=== PATIENT | female | born 2000 | race Caucasian/White ===

== ENCOUNTER 2023-12-06 18:47 | Emergency (ER) | payer OTHER, SELFPAY ==
[2023-12-06 18:51] VITALS: BP 127/88
[2023-12-06 19:17] LABS: % Basophils 0.7 % (0-2); % Eosinophils 3.5 % (0-6); % Immature Granulocytes 0.5 % (0-0.5); % Lymphocytes 29.4 % (20.5-51.1); % Monocytes 6.7 % (1.7-9.3); % Neutrophils 59.2 % (42.2-75.2); Absolute Basophils 0.1 10^3/uL (0-0.2); Absolute Eosinophils 0.5 10^3/uL (0-0.7); Absolute Immature Granulocytes 0.1 10^3/uL (0-0.05); Absolute Lymphocytes 4.5 10^3/uL (1.2-3.4); Hematocrit 48.2 % (37.0-47.0); Hemoglobin 15.6 g/dL (12.0-16.0); Mean Corp Hgb Conc. 32.4 g/dL (33.0-37.0); Mean Corpuscular Hgb 28.5 pg (27.0-31.0); Mean Corpuscular Volume 88.1 fL (81.0-99.0); Nucleated Red Blood Cells % 0 %; Platelet Count 447 10^3/uL (130-400); Red Blood Cell Count 5.47 10^6/uL (4.20-5.40); Red Cell Dist. Width 13.9 % (11.5-14.5); White Blood Cell Count 15.2 10^3/uL (4.8-10.8)
[2023-12-06 19:19] LABS: Urine Albumin Negative (Neg - Trace); Urine Bilirubin Negative (Negative); Urine Character Clear (Clear); Urine Color Yellow; Urine Glucose Negative (Negative); Urine Ketone Negative (Negative); Urine Leukocyte Trace (Negative); Urine Nitrite Negative (Negative); Urine Occult Blood 2+ (Negative); Urine Urobilinogen Negative (Neg - 1+)
[2023-12-06 19:25] VITALS: BP 125/108
[2023-12-06 19:27] LABS: Urine White Cell None Seen /HPF (0-5)
[2023-12-06 19:32] LABS: HCG, Serum Qualitative Screen Negative
[2023-12-06 19:36] LABS: ALT (SGPT) 34 U/L (0-35); AST (SGOT) 34 U/L (14-36); Albumin 4.3 g/dl (3.5-5.0); Alkaline Phosphatase 61 U/L (38-126); Blood Urea Nitrogen 10 mg/dl (7-17); Calcium 9.7 mg/dl (8.4-10.2); Carbon Dioxide 26 mmol/L (22-30); Chloride 106 mmol/L (98-107); Glucose 94 mg/dl (70-99); Lipase 267 U/L (23-300); Potassium 4.1 mmol/L (3.5-5.1); Sodium 137 mmol/L (135-145); Total Bilirubin 0.4 mg/dl (0.2-1.3); Total Protein 7.4 g/dl (6.3-8.2); eGFR > 60.00
--- NOTE | 2023-12-06 19:51 | ED.GENMED ---
History of Present Illness
General
Chief Complaint: Abdominal Pain
Source: patient
Exam Limitations: none
Time Seen by Provider: 12/06/23 19:28
Travel History
Have you had any contact with someone who has COVID-19?: No
Do you have any symptoms of coronavirus? Fever > 100 degrees, chills, cough, shortness of breath, sore throat, loss of taste or smell, muscle aches, or headache?: No
History of Present Illness
History of Present Illness:
This is a 23 year old female that comes in with c/o severe pelvic pain. States that this started about 5 hours ago and she is nauseated. States that this is worse then period cramps. States that she is due to see her PCP on the for a Pap smear.
States that right now she she has no [employer] as she moved from [place]. States that she feels slightly SOB with the pain, has vomited once, has diarrhea, slight headache and feels like she is spinning. States that she tried smoking marijuana to help with
the pain but this did not help. Denies any fever, chills, chest pain, urinary burning.
Past History
Past History
ED Past Medical History: Asthma (smoker), Cancer (Cervical CA), GERD (hiatal hernia, IBS), Seizures, Psychiatric (ADHD, depression, suicide attempt, Anxiety, Schizo, PTSD) and Other (Lower body nerve damage, Hiatal hernia, IBS, Endometriosi, Ovarian
cyst, PCOS, Pelvic floor dysfunction, Eczema,)
ED Past Surgical History: None, Cholecystectomy and Gynecological (LEEP, )
Social History
Tobacco: Smoker
Alcohol: None
Drug: Marijuana
Personal: Single (Has a Partner same sex)
Living: with family
Review of Systems
Review of Systems
All Other Systems: ROS reviewed and negative except as documented in HPI and ROS
Constitutional: Reports no symptoms; Denies fever or chills
EENT: Reports no symptoms
Respiratory: Reports trouble breathing (Slight with pain); Denies cough
Cardiac: Denies chest pain
ABD/GI: Reports abdominal pain, nausea, vomiting and diarrhea
: Reports no symptoms; Denies dysuria, frequency or urgency
Musculoskeletal: Reports no symptoms
Skin: Reports no symptoms
Neurological: Reports dizzy (Slight) and headache
Psychiatric: Reports no symptoms
Phy Exam
General Physical Exam
General Presentation: no apparent distress
General age: appears stated age
General Skin: warm and dry
General Habitus: normal
General Mental: alert
General Hydration: appears well hydrated
ENT Exam
ENT Exam: TM's normal, pharynx normal and neck supple
Eye Exam
Eye Exam: EOMI
Cardiovascular Exam
Cardiovascular Exam: regular rate/rhythm, no edema, no murmur and normal peripheral pulses
Pulmonary Exam
Pulmonary Exam: lungs clear, no respiratory distress, no rales, chest non tender, no crackles, no rhonchi, no wheezing and no cough
Gastrointestinal Exam
Gastrointestinal Exam: normal bowel sounds, soft, no organomegaly, no pulsatile mass, non distended, tender (Lower abd tenderness with palpation) and other (Obese)
Musculoskeletal Exam
Musculoskeletal Exam: full ROM and no edema
Skin Exam
Skin Exam: normal color, warm/dry, no rash and no petechia
Psychiatric Exam
Psychiatric Exam: normal mood/affect
Course
Orders/Labs/Results
Orders:
Orders
12/06/23 18:55
IV Insert/Care/Rem.- Treatment PRN
Test Result ONCE
12/06/23 19:05
Complete Blood Count/With Diff Urgent
Comprehensive Metabolic Panel Urgent
HCG, Serum Qualitative Screen Urgent
Lipase Urgent
Urinalysis Reflex To Culture Urgent
Date Specimen was Collected: 12/06/23
Time Specimen was Collected: 18:55
Urine Microscopic Reflex Cult Urgent
12/06/23 19:49
0.9% Sodium Chloride 1000 ml [Nss] 1,000 ml IV BOLUS
Ketorolac [Toradol] 30 mg IV NOW STA
Ondansetron Injectable [Zofran] 4 mg IV NOW STA
12/06/23 19:50
CT Abd/pelvis W Iv Cont Urgent
Comment:
Reason For Exam: Lower abd pain
Acetaminophen [Tylenol] 1,000 mg PO NOW STA
Abnormal Lab Results
12/06/23
19:05
WBC 15.2 H 10^3/uL
(4.8-10.8)
RBC 5.47 H 10^6/uL
(4.20-5.40)
Hct 48.2 H %
(37.0-47.0)
MCHC 32.4 L g/dL
(33.0-37.0)
Plt Count 447 H 10^3/uL
(130-400)
Abs Immat Gran (auto) 0.1 H 10^3/uL
(0-0.05)
Absolute Neuts (auto) 9.0 H 10^3/uL
(1.4-6.5)
Absolute Lymphs (auto) 4.5 H 10^3/uL
(1.2-3.4)
Absolute Monos (auto) 1.0 H 10^3/uL
(0.1-0.6)
Ur Occult Blood Reflex 2+ A
(Negative)
Leukocyte Esterase Rfl Trace A
(Negative)
Urine RBC 7-10 A /HPF
(0-2)
12/06/23 19:05
12/06/23 19:05
Leukocytosis, Plt slightly elevated. Urine negative for infection. HCG negative
Vital Signs
Initial and Last Documented VS:
Initial Vital Signs
Temp Pulse Resp BP Pulse Ox
98.2 F 113 17 127/88 97
12/06/23 18:51 12/06/23 18:51 12/06/23 18:51 12/06/23 18:51 12/06/23 18:51
Last Documented Vital Signs
Temp Pulse Resp BP Pulse Ox
98.2 F 88 20 99/63 94
12/06/23 18:51 12/06/23 22:45 12/06/23 22:45 12/06/23 22:00 12/06/23 22:45
MDM/Problems Addressed
Differential Diagnosis Includes:
Endometriosis, diverticulitis. Colitis,
MDM/Problems Addressed:
This is a 23 year old female that comes in with c/o lower abd pain. States that this started 5 hours ago and that her pain is worse the period cramps. State that she has seen pain managment and that sometimes she just needs something stronger the
what she can get over the counter.
Will check abd, CT abd/pelvis and medicate for pain.
Back into see patient. Patient states that the pain medication that she was given did not help at all. States that her pain is still an 8/10. Explained that her CT scan is normal. This may be due to her Endometriosis and patient will need to follow
up with the heel curver and pain management. Will give patient an IV dose of Dilaudid and Zofran know and discharge home.
Chronic conditions affecting care: Other (Endometriosis, PCOS, )
Acute Exacerbation and/or Progression of Chronic Illness:
Endometriosis, PCOS
*Radiology
Radiology exam reviewed: radiology read reviewed (CT-There is no evidence of acute pathology in the abdomen or pelvis. There is cholecystectomy. There is an IUD in the anteverted uterus. )
*Pulse Oximetry
Patient hypoxic: no
*EKG
Interpreted by ED Provider?: NA
Rate: EKG- N/A
*Glass Crusher Interpretation
Rate: Glass Crusher- N/A
*Critical Care Note
Total Time (30-74mins, 75-104mins- exclusive of procedures): Not Applicable
ED Attending Note
-
Portions of this chart may have been created with voice recognition software.� Occasional wrong word or��sound alike� substitutions may have occurred due to the inherent limitations of voice recognition software.
Discharge Plan
Departure
Patient Disposition: Home (Routine Discharge)
Date of Disposition: 12/06/23
Time of Disposition: 23:07
Patient with high blood pressure during this ER visit?: No
Condition: Good
Covid-19: Not Applicable
Discharge Problem:
Abdominal pain
Instructions: Abdominal Pain
Prescriptions:
No Action
albuterol sulfate 1 PUFF HFA aerosol inhaler
2 puff inhalation R Q4HPRN PRN (Reason: asthma)
Amitriptyline
20 mg PO .WITHDINNER
omeprazole [Prilosec] 40 MG capsule,delayed release(DR/EC)
40 mg PO .WITHDINNER
cholecalciferol (vitamin D3) [Vitamin D3] 1,000 UNIT capsule
2,000 unit PO DAILY
Prozac:
20 mg PO DAILY
cetirizine 10 MG tablet
10 mg PO DAILY
prazosin 1 MG capsule
3 mg PO BID
famotidine 40 MG tablet
40 mg PO .AM
ondansetron 4 MG tablet,disintegrating
4 mg PO TIDPRN PRN (Reason: nausea) Qty: 12 0RF
azithromycin 250 MG tablet
250 mg PO DAILY Qty: 6 0RF
Rx Instructions:
Take 500 mg day 1, take 250 mg day 2-5
venlafaxine 150 mg tablet extended release 24hr
150 mg PO DAILY Qty: 30 0RF
hydroxyzine HCl 25 mg tablet
25 mg PO BID PRN (Reason: itching) Qty: 30 0RF
omeprazole 40 mg capsule,delayed release(DR/EC)
40 mg PO BID Qty: 60 0RF
hyoscyamine sulfate 0.125 mg tablet,disintegrating
0.125 mg PO QID PRN (Reason: dyspepsia) Qty: 120 0RF
famotidine 20 mg tablet
20 mg PO BID Qty: 30 0RF
Referrals:
Nanette Tinoco MD, Resident [Family Provider] - Call in 1-3 days for appt
Activity Restrictions/Additional Instructions:
As discussed, your blood work shows that your WBC are elevated. However, your CT of the abd is normal. Your urine is negative for infection. This may all be related to your Endometriosis. Please follow up with the C[employer]ER for further evaluation and
pain management to help control your pain. IF YOU HAVE ANY OTHER CONCERNS PLEASE RETURN TO THE EMERGENCY ROOM.
Interventions
Interventions:
*Risk Screen - Suicide Last Done: 12/06/23 18:51
*General Assessment Last Done: 12/06/23 18:51
*Neglect/Abuse Screening Last Done: 12/06/23 18:51
ED- Fall Risk Assessment Last Done: 12/06/23 19:29
*ED COVID-19 Vaccine History Last Done: 12/06/23 18:51
FT-Ezhydm-Hjwvoikhmp Assessment Last Done: 12/06/23 19:29
Discharge Date and Time
Print Language: URDU
[2023-12-06] MEDS: ZOFRAN 4 MG IV ×2 (19:59→23:09)
[2023-12-06] MEDS: TORADOL 30 MG IV (19:59)
[2023-12-06] MEDS: TYLENOL 1000 MG PO (19:59)
[2023-12-06] MEDS: NSS 1000 IV (19:59)
[2023-12-06 20:08] VITALS: BP 102/76
[2023-12-06 21:21] VITALS: BP 103/63
[2023-12-06 22:00] VITALS: BP 99/63
[2023-12-06 23:00] VITALS: BP 101/72
[2023-12-06] MEDS: DILAUDID 0.5 MG IV (23:09)
== END 2023-12-06 23:21 | disposition home or self-care (01) ==
LOC: EMR 18:47
PROVIDERS: EMERGENCY PHYSICIAN Emergency Medicine; FAMILY PHYSICIAN Student in an Organized Health Care Education/Training Program
DX: R10.9 Unspecified abdominal pain (principal); R11.2 Nausea with vomiting, unspecified; R19.7 Diarrhea, unspecified; R06.02 Shortness of breath; R42 Dizziness and giddiness; R10.30 Lower abdominal pain, unspecified; E28.2 Polycystic ovarian syndrome
CPT/HCPCS: 99285; 96374; 96375 ×2; 96361; 96376; 74177; 80053; 81003; 81015; 83690; 84703; 85025; Q9967

== ENCOUNTER 2023-12-17 01:24 | Emergency (ER) | payer OTHER, SELFPAY ==
[2023-12-17 01:26] VITALS: BP 123/86
--- NOTE | 2023-12-17 01:44 | ED.GENMED ---
History of Present Illness
<GOYO Tucker - Last Filed: 12/17/23 01:53>
General
Chief Complaint: Dental Problem
Source: patient
Exam Limitations: none
Time Seen by Provider: 12/17/23 01:31
Nursing documentation reviewed up to this point in time: agreed with
Travel History
Have you had any contact with someone who has COVID-19?: No
Do you have any symptoms of coronavirus? Fever > 100 degrees, chills, cough, shortness of breath, sore throat, loss of taste or smell, muscle aches, or headache?: No
History of Present Illness
History of Present Illness:
patient is a 23 y/o female presenting with dental pain and swelling x 12 hrs. Patient states that she noticed the pain in her left lower teeth around noon. Patient states she was taking Advil and Tylenol all day for the pain with her last dose at
midnight. Patient states that pain is sharp and aches with no radiation. Patient admits the pain is a 9/10. Patient admits to having a root canal surgery done on the same teeth involved with 1 month ago. Patient denies any complications from the
procedure. Patient stated the welling on her left lower face was mild during the day and she went to bed around 8pm and woke up to extreme swelling Patient admits to nausea with no episodes of vomiting. Patient admits to numbness at the sight of
swelling. Patient admits to mild difficulty d=swallowing and talking. Patient admits to increased salivation and drooling. Patient denies any bleeding, fever, chills, V/D/C. Patient states she does not regularly see a dentist. Patient is a current
smoker
Past History
<GOYO Tucker - Last Filed: 12/17/23 01:53>
Past History
ED Past Medical History: Asthma (smoker), Cancer (Cervical CA), GERD (hiatal hernia, IBS), Seizures, Psychiatric (ADHD, depression, suicide attempt, Anxiety, Schizo, PTSD) and Other (Lower body nerve damage, Hiatal hernia, IBS, Endometriosi, Ovarian
cyst, PCOS, Pelvic floor dysfunction, Eczema,)
ED Past Surgical History: None, Cholecystectomy and Gynecological (LEEP, )
Social History
Tobacco: Smoker
Alcohol: None
Drug: Marijuana
Personal: Single (Has a Partner same sex)
Living: with family
Review of Systems
<GOYO Tucker - Last Filed: 12/17/23 01:53>
Review of Systems
Constitutional: Reports no symptoms
EENT: Reports mouth pain (left lower), mouth swelling (left lower ) and other (dysphagia, drooling )
Respiratory: Reports no symptoms
Cardiac: Reports no symptoms
ABD/GI: Reports nausea
Phy Exam
<GOYO Tucker - Last Filed: 12/17/23 01:53>
General Physical Exam
General Presentation: well appearing and no apparent distress
General Skin: warm and dry
General Habitus: normal
General Mental: alert
General Hydration: appears well hydrated
ENT Exam
ENT Exam: other (pain to palpation over swelling)
Additional ENT: moderate swelling noted to left lower mouth/teeth, erythema noted, pain
Eye Exam
Eye Exam: PERRL, cornea clear and conjunctiva normal
Cardiovascular Exam
Cardiovascular Exam: regular rate/rhythm, no edema, no murmur and normal peripheral pulses
Pulmonary Exam
Pulmonary Exam: lungs clear, no respiratory distress, no rales, no crackles, no rhonchi, no stridor, no wheezing and no cough
Gastrointestinal Exam
Gastrointestinal Exam: normal bowel sounds, non tender, soft, no organomegaly, no pulsatile mass and non distended
Neurological Exam
Neurological Exam: alert, oriented x3, no motor deficits and speech normal
Musculoskeletal Exam
Musculoskeletal Exam: full ROM and no edema
Skin Exam
Skin Exam: normal color, warm/dry, no rash and no petechia
Psychiatric Exam
Psychiatric Exam: normal mood/affect
Course
<GOYO Tucker - Last Filed: 12/17/23 01:53>
Orders/Labs/Results
Orders:
Orders
12/17/23 02:16
Clindamycin HCl [Cleocin] 450 mg PO NOW STA
12/17/23 02:17
Bupivacaine HCl/Epinephrine [Marcaine 0.5% W/Epi Dental [place]] 1 cartridge INJ OR ONE
Vital Signs
Initial and Last Documented VS:
Initial Vital Signs
Temp Pulse Resp BP Pulse Ox
98 F 104 18 123/86 98
12/17/23 01:26 12/17/23 01:26 12/17/23 01:26 12/17/23 01:26 12/17/23 01:26
Last Documented Vital Signs
Temp Pulse Resp BP Pulse Ox
98 F 104 18 123/86 98
12/17/23 01:26 12/17/23 01:26 12/17/23 01:26 12/17/23 01:26 12/17/23 01:26
<Larry Cornell DO - Last Filed: 12/17/23 03:39>
Orders/Labs/Results
Orders:
Orders
12/17/23 02:16
Clindamycin HCl [Cleocin] 450 mg PO NOW STA
12/17/23 02:17
Bupivacaine HCl/Epinephrine [Marcaine 0.5% W/Epi Dental [place]] 1 cartridge INJ OR ONE
Vital Signs
Initial and Last Documented VS:
Initial Vital Signs
Temp Pulse Resp BP Pulse Ox
98 F 104 18 123/86 98
12/17/23 01:26 12/17/23 01:26 12/17/23 01:26 12/17/23 01:26 12/17/23 01:26
Last Documented Vital Signs
Temp Pulse Resp BP Pulse Ox
98 F 104 18 123/86 98
12/17/23 01:26 12/17/23 01:26 12/17/23 01:26 12/17/23 01:26 12/17/23 01:26
Procedures
<Larry Cornell DO - Last Filed: 12/17/23 03:39>
Dentalgia
Dental Block: Nerve Block
Bupivacaine 0.5%/Epi Dental cartridge administered?: Yes
Abcess drained?: No
Pt tolerated procedure well w/ no immediate adverse effects?: Yes
<GOYO Tucker - Last Filed: 12/17/23 01:53>
MDM/Problems Addressed
Differential Diagnosis Includes:
abscess
ludwigs angina
MDM/Problems Addressed:
mouth pain
<GOYO Tucker - Last Filed: 12/17/23 01:53>
*Critical Care Note
Total Time (30-74mins, 75-104mins- exclusive of procedures): Not Applicable
<DO Reuben Moss Last Filed: 12/17/23 03:39>
Update Note
Update Note:
Patient has an allergy to morphine. She has had Percocet in the past. She does understand that oxycodone and morphine are in the same family of medications. She still request the Percocet.
ED Attending Note
<GOYO Tucker - Last Filed: 12/17/23 01:53>
-
Portions of this chart may have been created with voice recognition software.� Occasional wrong word or��sound alike� substitutions may have occurred due to the inherent limitations of voice recognition software.
<Larry Cornell DO - Last Filed: 12/17/23 03:39>
ED Attending Note
Patient seen and examined by attending physician: Yes
I performed the substantive portion of visit, reviewed & personally made and approve the management plan that is documented in note by myself or GISEL.: Yes
ED Attending Note:
Pleasant 23-year-old female who presents with left lower dental pain. She has been having pain and swelling since noon today. She has had dental work on these teeth in the past. She also has had an abscess in the past. She has not been on
antibiotics recently. Pt is a smoker. Patient was seen in conjunction with the PA student. I have reviewed and agree with the history and treatment plan presented. On my independent physical exam, patient is awake, alert, and oriented x3.
Swelling of the left buccal mucosa. Patient has full mobility of the tongue. No trismus. Voice is normal.
Discharge Plan
Departure
Patient Disposition: Home (Routine Discharge)
Date of Disposition: 12/17/23
Time of Disposition: 03:36
Patient with high blood pressure during this ER visit?: Yes
Condition: Good
Discharge Problem:
Abscess of internal cheek, left, Pain, dental
Instructions: Tooth Abscess (DC), Dental Pain (DC)
Prescriptions:
New
diclofenac sodium 75 mg tablet,delayed release (DR/EC)
75 mg PO BID Qty: 10 0RF
clindamycin HCl 150 mg capsule
450 mg PO TID 10 Days Qty: 90 0RF
No Action
albuterol sulfate 1 PUFF HFA aerosol inhaler
2 puff inhalation R Q4HPRN PRN (Reason: asthma)
cholecalciferol (vitamin D3) [Vitamin D3] 1,000 UNIT capsule
2,000 unit PO DAILY
cetirizine 10 MG tablet
10 mg PO DAILY
venlafaxine 150 mg tablet extended release 24hr
150 mg PO DAILY Qty: 30 0RF
omeprazole 40 mg capsule,delayed release(DR/EC)
40 mg PO BID Qty: 60 0RF
hyoscyamine sulfate 0.125 mg tablet,disintegrating
0.125 mg PO QID PRN (Reason: dyspepsia) Qty: 120 0RF
famotidine 20 mg tablet
20 mg PO BID Qty: 30 0RF
lorazepam [Ativan] 0.5 mg Tablet
0.5 mg PO DAILY
aripiprazole 5 mg Tablet
7.5 mg PO DAILY
Liletta 20.4 mcg/24 hrs (8 yrs) 52 mg Intrauterine Device
1 device INTRAUTERINE ONCE
hydroxyzine HCl 25 mg tablet
25 mg PO BID PRN (Reason: nausea)
Referrals:
[facility] [Outside]
Nanette Tinoco MD, Resident [Family Provider] -
Activity Restrictions/Additional Instructions:
Reduced-Fee Dental Clinics
[facility]: [phone] call for appt. No walk ins
[facility]:
[facility]: [phone]
[facility] [phone]
[facility]: . No walk ins
[facility]: [phone]
[facility]: [phone]
[facility]: 1-
[facility]: [phone]
[facility]: [phone]
[facility] Sliding scale, Free for uninsured
[facility]: [phone]
[facility] [phone] [address]
[facility]:
[facility]:
Interventions
Interventions:
*Risk Screen - Suicide Last Done: 12/17/23 02:01
*General Assessment Last Done: 12/17/23 02:01
*Neglect/Abuse Screening Last Done: 12/17/23 02:01
*ED COVID-19 Vaccine History Last Done: 12/17/23 02:01
Discharge Date and Time
Print Language: GREENLANDIC
[2023-12-17 02:01] VITALS: BMI 44.9
--- NOTE | 2023-12-17 02:07 | EDRN ---
Pt says she had 2 root canals done 1 month ago on back L lower teeth. Pt developed pain in these teeth and took motrin and tylenol at 2000 and put ice on L side of her face. Pt went to bed and woke at midnight with excruciating pain and
significantly increased swelling on L jaw. Pt took 1000mg tylenol at midnight. Pt denies fever/chills.
[2023-12-17] MEDS: CLEOCIN 450 MG PO (02:32)
[2023-12-17 04:07] VITALS: BP 125/75
[2023-12-17] MEDS: PERCOCET 5/325 1 TABLET PO (04:07)
== END 2023-12-17 04:15 | disposition home or self-care (01) ==
LOC: EMR 01:24
PROVIDERS: EMERGENCY PHYSICIAN Student in an Organized Health Care Education/Training Program; FAMILY PHYSICIAN Student in an Organized Health Care Education/Training Program
DX: K08.89 Other specified disorders of teeth and supporting structures (principal); F17.200 Nicotine dependence, unspecified, uncomplicated; R03.0 Elevated blood-pressure reading, without diagnosis of hypertension; Z88.5 Allergy status to narcotic agent
CPT/HCPCS: 99284; 64400

== ENCOUNTER 2024-01-24 11:28 | Emergency (ER) | payer OTHER, SELFPAY ==
[2024-01-24 11:37] VITALS: BP 126/83
--- NOTE | 2024-01-24 12:27 | ED.GENMED ---
History of Present Illness
General
Chief Complaint: Abdominal Symptoms
Source: patient
Time Seen by Provider: 01/24/24 12:04
Travel History
Have you had any contact with someone who has COVID-19?: No
Do you have any symptoms of coronavirus? Fever > 100 degrees, chills, cough, shortness of breath, sore throat, loss of taste or smell, muscle aches, or headache?: No
History of Present Illness
History of Present Illness:
23-year-old female with past medical history of GERD, IBS, hiatal hernia, endometriosis presenting to the emergency department for evaluation of right upper quadrant abdominal pain x 1 day accompanied with nausea and vomiting, loose stool and
decreased p.o. intake. Patient states the pain feels similar to when she had her previous cholecystectomy done in 2020. She notes a issue of chronic GI symptoms that this also feels like. She did not take anything at home other than her
omeprazole and Pepcid as she states usual Tylenol and Motrin do not work for her. She denies any fevers, chills, rigors, urinary symptoms, chest pain or shortness of breath, or any other concerns. Patient does note that due to her insurance she
has been unable to follow-up with a GI specialist. Social history was noted for cigarette/tobacco use.
Past History
Past History
ED Past Medical History: Asthma (smoker), GERD (hiatal hernia, IBS), Seizures, Psychiatric (ADHD, depression, suicide attempt, Anxiety, Schizo, PTSD) and Other (Lower body nerve damage, Hiatal hernia, IBS, Endometriosi, Ovarian cyst, PCOS, Pelvic
floor dysfunction, Eczema,)
ED Past Surgical History: Cholecystectomy and Gynecological (LEEP, )
Social History
Tobacco: Smoker
Alcohol: None
Drug: Marijuana
Personal: Single (Has a Partner same sex)
Living: with family
Review of Systems
Review of Systems
All Other Systems: ROS reviewed and negative except as documented in HPI and ROS
Phy Exam
Physical Exam
Physical Exam:
GENERAL: Alert , in no apparent distress, overweight
EYE: clear conjunctiva b/l
HEAD: NCAT
ENT: o/p clr, mmm.
CARDIAC: Regular rate and rhythm, no murmur.
LUNGS: Clear breath sounds bilaterally, no acute respiratory distress, no wheezes/rales/rhonchi
ABDOMEN: Soft, generalized tenderness on the right side of the abdomen, no r/g, no cvat
NEUROLOGICAL: Alert and oriented
SKIN: Warm and dry, skin intact.
MUSCULOSKELETAL: No edema, well perfused.
PSYCH: Normal and appropriate interaction.
Scores
Heart Failure Risk
Heart Failure Risk Score: Not Applicable
Heart Score for Chest Pain Patients
STEMI patient?: Not applicable
Withdrawal Assessment of Alcohol
Withdrawal Assessment Completed?: Not applicable
Course
Orders/Labs/Results
Orders:
Orders
01/24/24 12:17
0.9% Sodium Chloride 1000 ml [Nss] 1,000 ml IV BOLUS
HYDROmorphone [Dilaudid] 1 mg IV NOW STA
Ondansetron Injectable [Zofran] 4 mg IV NOW STA
01/24/24 12:18
Test Result ONCE
01/24/24 13:02
Complete Blood Count/With Diff Urgent
Comprehensive Metabolic Panel Urgent
HCG, Serum Qualitative Screen Urgent
Lipase Urgent
Urinalysis Reflex To Culture Urgent
Date Specimen was Collected: 01/24/24
Time Specimen was Collected: 13:02
01/24/24 14:01
Diphenhydramine [Benadryl] 50 mg PO NOW STA
Abnormal Lab Results
01/24/24
13:02
WBC 15.7 H 10^3/uL
(4.8-10.8)
RBC 5.61 H 10^6/uL
(4.20-5.40)
Hct 48.0 H %
(37.0-47.0)
MCHC 32.9 L g/dL
(33.0-37.0)
Abs Immat Gran (auto) 0.1 H 10^3/uL
(0-0.05)
Absolute Neuts (auto) 9.7 H 10^3/uL
(1.4-6.5)
Absolute Lymphs (auto) 4.6 H 10^3/uL
(1.2-3.4)
Absolute Monos (auto) 1.0 H 10^3/uL
(0.1-0.6)
ALT 41 H U/L
(0-35)
01/24/24 13:02
01/24/24 13:02
Vital Signs
Initial and Last Documented VS:
Initial Vital Signs
Temp Pulse Resp BP Pulse Ox
98.9 F 94 18 126/83 98
01/24/24 11:37 01/24/24 11:37 01/24/24 11:37 01/24/24 11:37 01/24/24 11:37
Last Documented Vital Signs
Temp Pulse Resp BP Pulse Ox
98.9 F 94 18 126/83 98
01/24/24 11:37 01/24/24 11:37 01/24/24 11:37 01/24/24 11:37 01/24/24 11:37
MDM/Problems Addressed
Differential Diagnosis Includes:
GERD, gastritis, hiatal hernia exacerbation, retained common bile duct stone, pancreatitis, appendicitis
MDM/Problems Addressed:
23-year-old female with chronic GI related symptoms presenting to the emergency department for evaluation of what appears to be an acute on chronic exacerbation of her usual GI symptoms. Patient seen in the ER in November with similar kind of
presentation and had an unremarkable workup including a CT of the abdomen and pelvis. Based off of current presentation I am less suspicious for an acute emergent pathology and suspect this is more of a chronic exacerbation of patient's chronic
medical conditions. Patient noting most anti-inflammatories do not give her any relief, there is a noted morphine allergy which patient reports anaphylaxis to. She was given Dilaudid on her last visit to the ER here without any evidence of
allergic reactions noted. Overall I am less suspicious for any acute surgical or infectious pathology. Will have low threshold to order imaging if labs start to return abnormal.
Chronic conditions affecting care: Previous abdomnial surgery and Other (GERD/gastritis)
Acute Exacerbation and/or Progression of Chronic Illness: Previous abdomnial surgery
*Pulse Oximetry
Patient hypoxic: no
*Critical Care Note
Total Time (30-74mins, 75-104mins- exclusive of procedures): Not Applicable
Data Reviewed
Review of Other/Old Records Reveals: Labs, Records and Radiology Studies
Source: patient and records
Patient Management
Escalation/DeEscalation of care consider admission/obs:
Patient's labs reveal a leukocytosis however this appears to be a chronic finding and patient does note that she has been told about this before and has been recommended to see hematology but has yet to do so. There is no work shift. Chemistry is
at patient's baseline and urine without any signs of infection. Overall again I do suspect that this is patient's chronic conditions causing her her symptoms today. She is requesting something for pain to be discharged home with. Patient states
she has done well with Vicodin before. Will give short term course of this as well as Zofran. [place] PDMP was reviewed without any prescriptive abnormalities. Patient is stable for discharge home.
ED Attending Note
-
Portions of this chart may have been created with voice recognition software.� Occasional wrong word or��sound alike� substitutions may have occurred due to the inherent limitations of voice recognition software.
Discharge Plan
Departure
Patient Disposition: Home (Routine Discharge)
Date of Disposition: 01/24/24
Time of Disposition: 14:01
Patient with high blood pressure during this ER visit?: No
Discharge Problem:
Abdominal pain, Nausea and vomiting
Instructions: Nausea and Vomiting, Adult (DC)
Prescriptions:
New
hydrocodone-acetaminophen 5-300 mg tablet
1 tab PO BID PRN (Reason: Pain) Qty: 8 0RF
ondansetron 4 mg tablet,disintegrating
4 mg PO TIDPRN PRN (Reason: nausea/vomiting) Qty: 10 0RF
No Action
albuterol sulfate 1 PUFF HFA aerosol inhaler
2 puff inhalation R Q4HPRN PRN (Reason: asthma)
cholecalciferol (vitamin D3) [Vitamin D3] 1,000 UNIT capsule
2,000 unit PO DAILY
cetirizine 10 MG tablet
10 mg PO DAILY
venlafaxine 150 mg tablet extended release 24hr
150 mg PO DAILY Qty: 30 0RF
omeprazole 40 mg capsule,delayed release(DR/EC)
40 mg PO BID Qty: 60 0RF
hyoscyamine sulfate 0.125 mg tablet,disintegrating
0.125 mg PO QID PRN (Reason: dyspepsia) Qty: 120 0RF
famotidine 20 mg tablet
20 mg PO BID Qty: 30 0RF
lorazepam [Ativan] 0.5 mg Tablet
0.5 mg PO DAILY
aripiprazole 5 mg Tablet
7.5 mg PO DAILY
Liletta 20.4 mcg/24 hrs (8 yrs) 52 mg Intrauterine Device
1 device INTRAUTERINE ONCE
hydroxyzine HCl 25 mg tablet
25 mg PO BID PRN (Reason: nausea)
diclofenac sodium 75 mg tablet,delayed release (DR/EC)
75 mg PO BID Qty: 10 0RF
clindamycin HCl 150 mg capsule
450 mg PO TID 10 Days Qty: 90 0RF
Referrals:
Nanette Tinoco MD, Resident [Family Provider] -
Interventions
Interventions:
*Risk Screen - Suicide Last Done: 01/24/24 13:54
*General Assessment Last Done: 01/24/24 13:54
*Neglect/Abuse Screening Last Done: 01/24/24 13:54
TK-Qyvbkq-Rqqzjfcdrf Assessment Last Done: 01/24/24 13:54
Discharge Date and Time
Print Language: BANGLADESHI
[2024-01-24] MEDS: NSS 1000 IV (12:57)
[2024-01-24] MEDS: DILAUDID 1 MG IV (12:58)
[2024-01-24] MEDS: ZOFRAN 4 MG IV (12:58)
[2024-01-24 13:10] LABS: Urine Albumin Negative (Neg - Trace); Urine Bilirubin Negative (Negative); Urine Character Clear (Clear); Urine Color Yellow; Urine Glucose Negative (Negative); Urine Ketone Negative (Negative); Urine Leukocyte Negative (Negative); Urine Nitrite Negative (Negative); Urine Occult Blood Negative (Negative); Urine Urobilinogen Negative (Neg - 1+)
[2024-01-24 13:12] LABS: % Basophils 0.6 % (0-2); % Eosinophils 1.8 % (0-6); % Immature Granulocytes 0.5 % (0-0.5); % Lymphocytes 29.3 % (20.5-51.1); % Monocytes 6.2 % (1.7-9.3); % Neutrophils 61.6 % (42.2-75.2); Absolute Basophils 0.1 10^3/uL (0-0.2); Absolute Eosinophils 0.3 10^3/uL (0-0.7); Absolute Immature Granulocytes 0.1 10^3/uL (0-0.05); Absolute Lymphocytes 4.6 10^3/uL (1.2-3.4); Absolute Neutrophils 9.7 10^3/uL (1.4-6.5); Hemoglobin 15.8 g/dL (12.0-16.0); Mean Corp Hgb Conc. 32.9 g/dL (33.0-37.0); Mean Corpuscular Hgb 28.2 pg (27.0-31.0); Mean Corpuscular Volume 85.6 fL (81.0-99.0); Mean Platelet Volume 10.1 fL (7.4-10.4); Nucleated Red Blood Cells % 0 %; Platelet Count 357 10^3/uL (130-400); Red Blood Cell Count 5.61 10^6/uL (4.20-5.40); Red Cell Dist. Width 14.2 % (11.5-14.5); White Blood Cell Count 15.7 10^3/uL (4.8-10.8)
[2024-01-24 13:33] LABS: ALT (SGPT) 41 U/L (0-35); AST (SGOT) 30 U/L (14-36); Albumin 4.3 g/dl (3.5-5.0); Alkaline Phosphatase 59 U/L (38-126); Blood Urea Nitrogen 8 mg/dl (7-17); Calcium 9.8 mg/dl (8.4-10.2); Carbon Dioxide 23 mmol/L (22-30); Chloride 107 mmol/L (98-107); Glucose 81 mg/dl (70-99); HCG, Serum Qualitative Screen Negative; Lipase 203 U/L (23-300); Potassium 4.3 mmol/L (3.5-5.1); Sodium 139 mmol/L (135-145); Total Bilirubin 0.5 mg/dl (0.2-1.3); Total Protein 7.3 g/dl (6.3-8.2); eGFR > 60.00
[2024-01-24] MEDS: BENADRYL 50 MG PO (14:06)
[2024-01-24 14:51] VITALS: BP 125/80
[2024-01-24 14:53] VITALS: BP 125/80
== END 2024-01-24 14:54 | disposition home or self-care (01) ==
LOC: EMR 11:28
PROVIDERS: Physician Assistant Medical; EMERGENCY PHYSICIAN Emergency Medicine; FAMILY PHYSICIAN Student in an Organized Health Care Education/Training Program
DX: R10.11 Right upper quadrant pain (principal); R11.2 Nausea with vomiting, unspecified; K21.9 Gastro-esophageal reflux disease without esophagitis; K58.9 Irritable bowel syndrome, unspecified; J45.909 Unspecified asthma, uncomplicated; G40.909 Epilepsy, unspecified, not intractable, without status epilepticus; F32.A Depression, unspecified; F43.10 Post-traumatic stress disorder, unspecified; E28.2 Polycystic ovarian syndrome; F17.210 Nicotine dependence, cigarettes, uncomplicated; Z90.49 Acquired absence of other specified parts of digestive tract; Z91.51 Personal history of suicidal behavior
CPT/HCPCS: 99283; 96374; 96375; 96361; 80053; 81003; 83690; 84703; 85025

== ENCOUNTER → 2024-03-28 08:56 | Outpatient (REF) | payer OTHER, SELFPAY | LOC: MRI 3T 08:56 | PROVIDERS: ATTENDING PHYSICIAN Student in an Organized Health Care Education/Training Program | DX: M62.81 Muscle weakness (generalized) (principal); M79.7 Fibromyalgia | CPT/HCPCS: 70553; A9575 ==

== ENCOUNTER 2024-04-11 10:37 | Emergency (ER) | payer OTHER, SELFPAY ==
[2024-04-11 10:52] VITALS: BP 118/79
[2024-04-11 11:32] VITALS: BMI 45.3
[2024-04-11 11:33] VITALS: BP 105/53
--- NOTE | 2024-04-11 11:46 | ED.GENMED ---
History of Present Illness
General
Chief Complaint: Abdominal Pain
Source: patient
Time Seen by Provider: 04/11/24 11:28
History of Present Illness
History of Present Illness:
23yoF with a history of GERD, IBS, endometriosis, pelvic floor dysfunction, and asthma presenting with her significant other for evaluation of abdominal pain. Patient reports a sharp, stabbing pain in her right lower quadrant that woke her up from
sleep this morning around 7 AM. The pain has been coming in waves and is intermittently severe. She currently rates her pain as a 9 out of 10 in severity. She also reports nausea but denies vomiting. She noticed a small amount of hematuria this
morning. No fevers. She is primarily worried about appendicitis. Previous abdominal surgeries include a cholecystectomy and a laparoscopy.
Past History
Past History
ED Past Medical History: Asthma (smoker), GERD (hiatal hernia, IBS), Seizures, Psychiatric (ADHD, depression, suicide attempt, Anxiety, Schizo, PTSD) and Other (Lower body nerve damage, Hiatal hernia, IBS, Endometriosi, Ovarian cyst, PCOS, Pelvic
floor dysfunction, Eczema,)
ED Past Surgical History: Cholecystectomy and Gynecological (LEEP, )
Social History
Tobacco: Smoker
Alcohol: None
Drug: Marijuana
Personal: Single (Has a Partner same sex)
Living: with family
Phy Exam
General Physical Exam
General Presentation: well appearing and no apparent distress
General age: appears stated age
General Skin: warm and dry
General Habitus: normal
General Mental: alert
Cardiovascular Exam
Cardiovascular Exam: regular rate/rhythm
Pulmonary Exam
Pulmonary Exam: lungs clear, no respiratory distress, no crackles and no wheezing
Gastrointestinal Exam
Gastrointestinal Exam: soft, non distended, cva tenderness (R) and tender (+Tenderness throughout abdomen, seems to be worse in the RLQ. +R CVA tenderness. No rebound or guarding. )
Palpation: generalized: Moderate tenderness
Skin Exam
Skin Exam: normal color and warm/dry
Psychiatric Exam
Psychiatric Exam: normal mood/affect
Course
Orders/Labs/Results
Orders:
Orders
04/11/24 11:29
Complete Blood Count/With Diff Urgent
Comprehensive Metabolic Panel Urgent
Lipase Urgent
04/11/24 11:45
CT Abd/pelvis W Iv Cont Urgent
Comment:
Reason For Exam: RLQ pain
0.9% Sodium Chloride 1000 ml [Nss] 1,000 ml IV BOLUS
HYDROmorphone [Dilaudid] 1 mg IV NOW STA
Ketorolac [Toradol] 15 mg IV NOW STA
Ondansetron Injectable [Zofran] 4 mg IV NOW STA
Test Result ONCE
04/11/24 12:04
HCG, Urine Qualitative Screen Urgent
Date Specimen was Collected: 04/11/24
Time Specimen was Collected: 11:48
Urinalysis Reflex To Culture Urgent
Date Specimen was Collected: 04/11/24
Time Specimen was Collected: 11:48
Urine Microscopic Reflex Cult Urgent
04/11/24 12:59
Acetaminophen 1000MG/100Ml [Ofirmev] 1,000 mg in 100 ml IV ONCE
Acetaminophen IV Indication:: ED Narcotic History-ONCE
HYDROmorphone [Dilaudid] 1 mg IV NOW STA
Ketorolac [Toradol] 15 mg IV NOW STA
Abnormal Lab Results
04/11/24 04/11/24
11:29 12:04
WBC 12.7 H 10^3/uL
(4.8-10.8)
RDW 15.2 H %
(11.5-14.5)
MPV 10.7 H fL
(7.4-10.4)
Absolute Neuts (auto) 7.2 H 10^3/uL
(1.4-6.5)
Absolute Lymphs (auto) 4.0 H 10^3/uL
(1.2-3.4)
Absolute Monos (auto) 1.0 H 10^3/uL
(0.1-0.6)
Chloride 109 H mmol/L
(98-107)
BUN 6 L mg/dl
(7-17)
Ur Occult Blood Reflex 3+ A
(Negative)
Urine Bacteria (Reflex) Few A
(Negative)
04/11/24 11:29
04/11/24 11:29
Vital Signs
Initial and Last Documented VS:
Initial Vital Signs
Temp Pulse Resp BP Pulse Ox
98.6 F 92 18 118/79 97
04/11/24 10:52 04/11/24 10:52 04/11/24 10:52 04/11/24 10:52 04/11/24 10:52
Last Documented Vital Signs
Temp Pulse Resp BP Pulse Ox
98.6 F 74 16 108/59 98
04/11/24 10:52 04/11/24 14:51 04/11/24 14:51 04/11/24 14:49 04/11/24 14:49
MDM/Problems Addressed
Differential Diagnosis Includes:
23yoF here with RLQ abd pain that woke her up from sleep this morning. Associated with nausea and hematuria. She is afebrile and hemodynamically stable. She is well appearing in no distress. No signs of peritonitis on abdominal exam. Differential
diagnosis includes but is not limited to: kidney stone, appendicitis, pyelonephritis, ovarian cyst, nonspecific abdominal pain
Initial ED plan: Check abdominal labs, UA, HCG, and CT abdomen. IV Zofran, Toradol, Dilaudid, and fluid bolus for symptoms.
*Critical Care Note
Total Time (30-74mins, 75-104mins- exclusive of procedures): Not Applicable
Update Note
Update Note:
Labs reveal a leukocytosis with a WBC of 12.7 which is nonspecific. Remainder of labs unremarkable including normal renal function, LFTs, lipase. UA shows 3+ blood but no signs of infection. HCG negative. CT abdomen is negative for acute findings.
Specifically, a normal appendix was visualized. Unclear etiology of symptoms, ?passed stone given hematuria. Patient stable for discharge. Advised close PCP f/u and ED return precautions discussed. Patient discharged in stable condition.
ED Attending Note
-
Portions of this chart may have been created with voice recognition software.� Occasional wrong word or��sound alike� substitutions may have occurred due to the inherent limitations of voice recognition software.
Discharge Plan
Departure
Patient Disposition: Home (Routine Discharge)
Date of Disposition: 04/11/24
Time of Disposition: 14:50
Patient with high blood pressure during this ER visit?: No
Discharge Problem:
Right sided abdominal pain
Instructions: Abdominal Pain
Prescriptions:
No Action
albuterol sulfate 1 PUFF HFA aerosol inhaler
2 puff inhalation R Q4HPRN PRN (Reason: asthma)
cholecalciferol (vitamin D3) [Vitamin D3] 1,000 UNIT capsule
2,000 unit PO DAILY
cetirizine 10 MG tablet
10 mg PO DAILY
venlafaxine 150 mg tablet extended release 24hr
150 mg PO DAILY Qty: 30 0RF
omeprazole 40 mg capsule,delayed release(DR/EC)
40 mg PO BID Qty: 60 0RF
hyoscyamine sulfate 0.125 mg tablet,disintegrating
0.125 mg PO QID PRN (Reason: dyspepsia) Qty: 120 0RF
famotidine 20 mg tablet
20 mg PO BID Qty: 30 0RF
lorazepam [Ativan] 0.5 mg Tablet
0.5 mg PO DAILY
aripiprazole 5 mg Tablet
7.5 mg PO DAILY
Liletta 20.4 mcg/24 hrs (8 yrs) 52 mg Intrauterine Device
1 device INTRAUTERINE ONCE
hydroxyzine HCl 25 mg tablet
25 mg PO BID PRN (Reason: nausea)
diclofenac sodium 75 mg tablet,delayed release (DR/EC)
75 mg PO BID Qty: 10 0RF
clindamycin HCl 150 mg capsule
450 mg PO TID 10 Days Qty: 90 0RF
hydrocodone-acetaminophen 5-300 mg tablet
1 tab PO BID PRN (Reason: Pain) Qty: 8 0RF
ondansetron 4 mg tablet,disintegrating
4 mg PO TIDPRN PRN (Reason: nausea/vomiting) Qty: 10 0RF
Referrals:
Nanette Tinoco MD, Resident [Family Provider] -
Activity Restrictions/Additional Instructions:
Please follow-up with your family doctor on Sunday. Return to the ER immediately with any new or worsening symptoms.
Interventions
Interventions:
*Risk Screen - Suicide Last Done: 04/11/24 10:52
*General Assessment Last Done: 04/11/24 10:52
*Neglect/Abuse Screening Last Done: 04/11/24 10:52
ED- Fall Risk Assessment Last Done: 04/11/24 11:35
*ED COVID-19 Vaccine History Last Done: 04/11/24 11:17
*Nursing Disposition Last Done: 04/11/24 15:00
OZ-Elygkh-Yirbdnusfs Assessment Last Done: 04/11/24 11:35
Discharge Date and Time
Discharge Date/Time: 04/11/24 15:01
Print Language: FAROESE
[2024-04-11 11:50] LABS: % Basophils 0.6 % (0-2); % Eosinophils 2.8 % (0-6); % Immature Granulocytes 0.2 % (0-0.5); % Lymphocytes 31.2 % (20.5-51.1); % Monocytes 8.1 % (1.7-9.3); % Neutrophils 57.1 % (42.2-75.2); Absolute Basophils 0.1 10^3/uL (0-0.2); Absolute Eosinophils 0.4 10^3/uL (0-0.7); Absolute Neutrophils 7.2 10^3/uL (1.4-6.5); Hematocrit 45.1 % (37.0-47.0); Hemoglobin 15.1 g/dL (12.0-16.0); Mean Corp Hgb Conc. 33.5 g/dL (33.0-37.0); Mean Corpuscular Hgb 28.5 pg (27.0-31.0); Mean Corpuscular Volume 85.3 fL (81.0-99.0); Mean Platelet Volume 10.7 fL (7.4-10.4); Nucleated Red Blood Cells % 0 %; Platelet Count 344 10^3/uL (130-400); Red Blood Cell Count 5.29 10^6/uL (4.20-5.40); Red Cell Dist. Width 15.2 % (11.5-14.5); White Blood Cell Count 12.7 10^3/uL (4.8-10.8)
[2024-04-11] MEDS: NSS 1000 IV (11:59)
[2024-04-11] MEDS: TORADOL 15 MG IV ×2 (11:59→13:03)
[2024-04-11] MEDS: ZOFRAN 4 MG IV (11:59)
[2024-04-11] MEDS: DILAUDID 1 MG IV ×2 (12:00→13:03)
[2024-04-11 12:02] LABS: ALT (SGPT) 31 U/L (0-35); AST (SGOT) 25 U/L (14-36); Albumin 3.8 g/dl (3.5-5.0); Alkaline Phosphatase 55 U/L (38-126); Blood Urea Nitrogen 6 mg/dl (7-17); Calcium 9.5 mg/dl (8.4-10.2); Carbon Dioxide 25 mmol/L (22-30); Chloride 109 mmol/L (98-107); Estimated Creatinine Clearance > 125 ml/min; Glucose 96 mg/dl (70-99); Lipase 181 U/L (23-300); Potassium 4.6 mmol/L (3.5-5.1); Sodium 139 mmol/L (135-145); Total Bilirubin 0.3 mg/dl (0.2-1.3); Total Protein 6.5 g/dl (6.3-8.2); eGFR > 60.00
[2024-04-11 12:20] LABS: HCG, Urine Qualitative Screen Negative
[2024-04-11 12:27] LABS: Urine Albumin Negative (Neg - Trace); Urine Bilirubin Negative (Negative); Urine Character Clear (Clear); Urine Color Yellow; Urine Glucose Negative (Negative); Urine Ketone Negative (Negative); Urine Leukocyte Negative (Negative); Urine Nitrite Negative (Negative); Urine Occult Blood 3+ (Negative); Urine Specific Gravity 1.005 (<1.030); Urine Urobilinogen Negative (Neg - 1+); Urine pH 6.5 (5.0-9.0)
[2024-04-11 12:38] LABS: Urine Bacteria Few (Negative); Urine Red Blood Cell 0-2 /HPF (0-2); Urine White Cell 0-2 /HPF (0-5)
[2024-04-11 13:00] VITALS: BP 98/50
[2024-04-11] MEDS: OFIRMEV 100 IV (13:04)
[2024-04-11 14:21] VITALS: BP 93/51
[2024-04-11 14:49] VITALS: BP 108/59
== END 2024-04-11 15:01 | disposition home or self-care (01) ==
LOC: EMR 10:37
PROVIDERS: Physician Assistant; EMERGENCY PHYSICIAN Emergency Medicine; FAMILY PHYSICIAN Student in an Organized Health Care Education/Training Program
DX: R10.31 Right lower quadrant pain (principal); K21.9 Gastro-esophageal reflux disease without esophagitis; J45.909 Unspecified asthma, uncomplicated; F17.200 Nicotine dependence, unspecified, uncomplicated
CPT/HCPCS: 99285; 96374; 96375 ×3; 96361; 96376 ×2; 74177; 80053; 81003; 81015; 81025; 83690; 85025; Q9967

== ENCOUNTER 2024-05-29 11:54 | Emergency (ER) | payer OTHER, SELFPAY ==
[2024-05-29 11:55] VITALS: BP 127/81
[2024-05-29 11:59] VITALS: BP 127/81
[2024-05-29 12:16] LABS: % Basophils 0.5 % (0-2); % Eosinophils 2.5 % (0-6); % Immature Granulocytes 0.5 % (0-0.5); % Lymphocytes 27.9 % (20.5-51.1); % Monocytes 6.4 % (1.7-9.3); % Neutrophils 62.2 % (42.2-75.2); Absolute Basophils 0.1 10^3/uL (0-0.2); Absolute Eosinophils 0.4 10^3/uL (0-0.7); Absolute Immature Granulocytes 0.1 10^3/uL (0-0.05); Absolute Monocytes 0.9 10^3/uL (0.1-0.6); Absolute Neutrophils 8.8 10^3/uL (1.4-6.5); Hematocrit 44.8 % (37.0-47.0); Mean Corp Hgb Conc. 33.5 g/dL (33.0-37.0); Mean Corpuscular Hgb 28.7 pg (27.0-31.0); Mean Corpuscular Volume 85.7 fL (81.0-99.0); Nucleated Red Blood Cells % 0 %; Platelet Count 334 10^3/uL (130-400); Red Blood Cell Count 5.23 10^6/uL (4.20-5.40); Red Cell Dist. Width 15.3 % (11.5-14.5); White Blood Cell Count 14.2 10^3/uL (4.8-10.8)
[2024-05-29 12:32] LABS: HCG, Serum Qualitative Screen Negative
[2024-05-29 12:37] LABS: ALT (SGPT) 34 U/L (0-35); AST (SGOT) 27 U/L (14-36); Albumin 3.9 g/dl (3.5-5.0); Alkaline Phosphatase 59 U/L (38-126); Blood Urea Nitrogen 7 mg/dl (7-17); Calcium 9.4 mg/dl (8.4-10.2); Carbon Dioxide 21 mmol/L (22-30); Chloride 109 mmol/L (98-107); Glucose 97 mg/dl (70-99); Lipase 295 U/L (23-300); Potassium 4.1 mmol/L (3.5-5.1); Sodium 141 mmol/L (135-145); Total Bilirubin 0.3 mg/dl (0.2-1.3); Total Protein 6.5 g/dl (6.3-8.2); eGFR > 60.00
[2024-05-29 12:46] LABS: Troponin I < 0.012 ng/ml
--- NOTE | 2024-05-29 13:00 | ED.GENMED ---
History of Present Illness
General
Chief Complaint: Chest Pain
Source: patient
Exam Limitations: none
Time Seen by Provider: 05/29/24 12:51
History of Present Illness
History of Present Illness:
See MDM
Past History
Past History
ED Past Medical History: Asthma (smoker), GERD (hiatal hernia, IBS), Seizures, Psychiatric (ADHD, depression, suicide attempt, Anxiety, Schizo, PTSD) and Other (Lower body nerve damage, Hiatal hernia, IBS, Endometriosi, Ovarian cyst, PCOS, Pelvic
floor dysfunction, Eczema,)
ED Past Surgical History: Cholecystectomy and Gynecological (LEEP, )
Social History
Tobacco: Smoker
Alcohol: None
Drug: Marijuana
Personal: Single (Has a Partner same sex)
Living: with family
Phy Exam
Physical Exam
Physical Exam:
See MDM
Scores
Heart Score for Chest Pain Patients
STEMI patient?: No
History: Slightly or Non-Suspicious
ECG: Normal
Age: </= 45 years
Risk Factors: No Risk Factors
Troponin: </= Normal Limit
Heart Score for Chest Pain Patients: 0
Heart Score Risk: 2.5% MACE over next 6 weeks
Course
Orders/Labs/Results
Orders:
Orders
05/29/24 11:54
Electrocardiogram (*1) Urgent
Reason for Study: Chest Pain
05/29/24 11:55
EKG- Treatment ONCE
05/29/24 12:01
Test Result ONCE
05/29/24 12:05
Complete Blood Count/With Diff Urgent
Comprehensive Metabolic Panel Urgent
HCG, Serum Qualitative Screen Urgent
Lipase Urgent
Troponin I Urgent
05/29/24 13:00
HYDROmorphone [Dilaudid] 1 mg IM NOW STA
Ondansetron Orally Disint [Zofran Odt (Orally Disintegrating)] 4 mg PO NOW STA
Abnormal Lab Results
05/29/24
12:05
WBC 14.2 H 10^3/uL
(4.8-10.8)
RDW 15.3 H %
(11.5-14.5)
Abs Immat Gran (auto) 0.1 H 10^3/uL
(0-0.05)
Absolute Neuts (auto) 8.8 H 10^3/uL
(1.4-6.5)
Absolute Lymphs (auto) 4.0 H 10^3/uL
(1.2-3.4)
Absolute Monos (auto) 0.9 H 10^3/uL
(0.1-0.6)
Chloride 109 H mmol/L
(98-107)
Carbon Dioxide 21 L mmol/L
(22-30)
05/29/24 12:05
05/29/24 12:05
Vital Signs
Initial and Last Documented VS:
Initial Vital Signs
Temp Pulse Resp BP Pulse Ox
98 F 95 18 127/81 97
05/29/24 11:55 05/29/24 11:55 05/29/24 11:55 05/29/24 11:55 05/29/24 11:55
Last Documented Vital Signs
Temp Pulse Resp BP Pulse Ox
98 F 104 18 127/81 96
05/29/24 11:59 05/29/24 11:59 05/29/24 11:59 05/29/24 11:59 05/29/24 11:59
MDM/Problems Addressed
Differential Diagnosis Includes:
HPI and MDM Narrative:
23-year-old female presenting for evaluation of abdominal pain. This occurred earlier today at 9 AM while she was at her desk. She denies any preceding symptoms. Patient believes this is related to her sliding hiatal hernia or possibly peptic
ulcer disease. She did try to eat but threw up. She states she is compliant with famotidine and pantoprazole. Blood work and EKG done prior to my evaluation. EKG within normal limits. Blood work negative other than expected reactive
leukocytosis from vomiting. She is afebrile.
On exam, patient is extremely well-appearing nontoxic. She complains of upper abdominal pain and chest pain but her chest pain appears to be related to her abdominal pain. Lungs are clear. Heart regular rate and rhythm. Given her history of
ulcer disease and hiatal hernia, we discussed this is likely related to that. We discussed continued compliance with medication and follow-up with GI. Patient states she usually gets Dilaudid when it is this bad. I did compromise with 1 IM
Dilaudid prior to discharge
Physical exam
General: Well appearing and non-toxic. Sitting in bed comfortably
HEENT: protecting airway
Neck: appears supple
CV: No evidence of cyanosis. Regular rate and rhythm
Resp: No accessory muscle use. Lungs clear
Abd: Non-distended. Mild epigastric tenderness. No rebound
Extremities: No deformities
Neuro: alert
Psych: Normal affect
Skin: Intact
Problems Addressed including Acute and Chronic Conditions affecting care:
1. Abdominal and chest pain
Acuity: acute
Prognosis: stable
Details: Likely in the setting of her known peptic ulcer disease or her known hiatal hernia. Blood work without clinical significance. Discussed continued compliance with her medications and outpatient follow-up with GI
Differential Diagnosis (but not limited to): Pancreatitis, sliding hiatal hernia, colitis, peptic ulcer disease
Testing considered: CT of abdomen/pelvis but she is too well apperaing
Drug therapy (if applicable): OTC meds, please see d/c instruction regarding Rx drugs
Amount and/or Complexity of Data Reviewed
Clinical info obtained from: Patient
External data reviewed: N/A
Labs I independently reviewed (but not limited to): Mild leukocytosis
Radiology: N/A
Pulse Ox: not hypoxic
EKG independently reviewed: N/A
Putty And Patch Worker: N/A
Critical Care: N/A
Risk of Complication:
Social Determinants of health: Good social support
Discussed with other providers: N/A
Escalation of Care includes Admit/Obs: After being observed in the Emergency Department, pt stable for discharge.
Occasional wrong word or 'sound a like' substitutions may have occurred due to the inherent limitations of voice recognition software. Read the chart carefully and recognize, using context, where substitutions have occurred.
*Critical Care Note
Total Time (30-74mins, 75-104mins- exclusive of procedures): Not Applicable
ED Attending Note
-
Portions of this chart may have been created with voice recognition software.� Occasional wrong word or��sound alike� substitutions may have occurred due to the inherent limitations of voice recognition software.
Discharge Plan
Departure
Patient Disposition: Home (Routine Discharge)
Date of Disposition: 05/29/24
Time of Disposition: 13:01
Patient with high blood pressure during this ER visit?: No
Discharge Problem:
Abdominal pain
Prescriptions:
No Action
albuterol sulfate 1 PUFF HFA aerosol inhaler
2 puff inhalation R Q4HPRN PRN (Reason: asthma)
cholecalciferol (vitamin D3) [Vitamin D3] 1,000 UNIT capsule
2,000 unit PO DAILY
cetirizine 10 MG tablet
10 mg PO DAILY
venlafaxine 150 mg tablet extended release 24hr
150 mg PO DAILY Qty: 30 0RF
omeprazole 40 mg capsule,delayed release(DR/EC)
40 mg PO BID Qty: 60 0RF
hyoscyamine sulfate 0.125 mg tablet,disintegrating
0.125 mg PO QID PRN (Reason: dyspepsia) Qty: 120 0RF
famotidine 20 mg tablet
20 mg PO BID Qty: 30 0RF
lorazepam [Ativan] 0.5 mg Tablet
0.5 mg PO DAILY
aripiprazole 5 mg Tablet
7.5 mg PO DAILY
Liletta 20.4 mcg/24 hrs (8 yrs) 52 mg Intrauterine Device
1 device INTRAUTERINE ONCE
hydroxyzine HCl 25 mg tablet
25 mg PO BID PRN (Reason: nausea)
diclofenac sodium 75 mg tablet,delayed release (DR/EC)
75 mg PO BID Qty: 10 0RF
clindamycin HCl 150 mg capsule
450 mg PO TID 10 Days Qty: 90 0RF
hydrocodone-acetaminophen 5-300 mg tablet
1 tab PO BID PRN (Reason: Pain) Qty: 8 0RF
ondansetron 4 mg tablet,disintegrating
4 mg PO TIDPRN PRN (Reason: nausea/vomiting) Qty: 10 0RF
Referrals:
Glory Tabares, [Active] -
Activity Restrictions/Additional Instructions:
Please return for any worsening symptoms.
You may return at any time if you have further concerns.
Please follow up with your doctor at the first available appointment, preferably this week.
Given your history, please make an appointment to see the horse exerciser. Continue to take your medication as prescribed.
Thank you for choosing [facility].
Interventions
Interventions:
*Risk Screen - Suicide Last Done: 05/29/24 11:55
*General Assessment Last Done: 05/29/24 11:55
*Neglect/Abuse Screening Last Done: 05/29/24 11:55
Discharge Date and Time
Print Language: ITALIAN
[2024-05-29] MEDS: ZOFRAN ODT (ORALLY DISINTEGRATING) 4 MG PO (13:06)
[2024-05-29] MEDS: DILAUDID 1 MG IM (13:06)
== END 2024-05-29 13:15 | disposition home or self-care (01) ==
LOC: EMR 11:54
PROVIDERS: Emergency Medicine; EMERGENCY PHYSICIAN Student in an Organized Health Care Education/Training Program; FAMILY PHYSICIAN Family Medicine
DX: R10.10 Upper abdominal pain, unspecified (principal); F17.200 Nicotine dependence, unspecified, uncomplicated
CPT/HCPCS: 99284; 96372; 80053; 83690; 84484; 84703; 85025; 93005

== ENCOUNTER 2024-08-03 18:09 | Emergency (ER) | payer OTHER, SELFPAY ==
[2024-08-03 18:10] VITALS: BP 128/86
[2024-08-03 18:47] LABS: % Basophils 0.5 % (0-2); % Eosinophils 2.6 % (0-6); % Immature Granulocytes 0.5 % (0-0.5); % Lymphocytes 35.7 % (20.5-51.1); % Monocytes 7.5 % (1.7-9.3); % Neutrophils 53.2 % (42.2-75.2); Absolute Basophils 0.1 10^3/uL (0-0.2); Absolute Eosinophils 0.4 10^3/uL (0-0.7); Absolute Immature Granulocytes 0.1 10^3/uL (0-0.05); Absolute Lymphocytes 5.7 10^3/uL (1.2-3.4); Absolute Monocytes 1.2 10^3/uL (0.1-0.6); Absolute Neutrophils 8.5 10^3/uL (1.4-6.5); Hematocrit 46.5 % (37.0-47.0); Hemoglobin 15.4 g/dL (12.0-16.0); Mean Corp Hgb Conc. 33.1 g/dL (33.0-37.0); Mean Corpuscular Hgb 28.6 pg (27.0-31.0); Mean Corpuscular Volume 86.3 fL (81.0-99.0); Mean Platelet Volume 9.9 fL (7.4-10.4); Nucleated Red Blood Cells % 0 %; Platelet Count 394 10^3/uL (130-400); Red Blood Cell Count 5.39 10^6/uL (4.20-5.40); Red Cell Dist. Width 15.2 % (11.5-14.5)
--- NOTE | 2024-08-03 18:52 | ED.GENMED ---
History of Present Illness
General
Chief Complaint: Abdominal Pain
Source: patient
Exam Limitations: none
Time Seen by Provider: 08/03/24 18:41
History of Present Illness
History of Present Illness:
This is a 24 year old female that comes in with c/o right lower abd pain. States that this started at 12 noon and progressively got worse. States that she is nauseated, had hot and cold flashes. stats that she had a little chest discomfort, nausea
and diarrhea, headache, dizziness and slight urinary burning.
Past History
Past History
ED Past Medical History: Asthma (smoker), Cancer (Cervical cancer), GERD (hiatal hernia, IBS), Seizures, Psychiatric (ADHD, depression, suicide attempt, Anxiety, Schizo, PTSD, Autism) and Other (Lower body nerve damage, Hiatal hernia, IBS,
Endometriosis, Ovarian cyst, PCOS, Pelvic floor dysfunction, Eczema, kidney stones)
ED Past Surgical History: Cholecystectomy, Gynecological (LEEP, ) and Tonsilectomy (and adenoids)
Social History
Tobacco: Smoker
Alcohol: None
Drug: Marijuana
Personal: Single (Has a Partner same sex)
Living: with family
Review of Systems
Review of Systems
All Other Systems: ROS reviewed and negative except as documented in HPI and ROS
Constitutional: Reports chills; Denies fever
EENT: Reports no symptoms
Respiratory: Reports no symptoms; Denies cough or trouble breathing
Cardiac: Reports chest pain
ABD/GI: Reports abdominal pain, nausea and diarrhea; Denies vomiting
: Reports dysuria; Denies frequency or urgency
Musculoskeletal: Reports no symptoms
Skin: Reports no symptoms
Neurological: Reports dizzy and headache
Psychiatric: Reports no symptoms
Phy Exam
General Physical Exam
General Presentation: no apparent distress
General age: appears stated age
General Skin: warm and dry
General Mental: alert
General Hydration: appears well hydrated
ENT Exam
ENT Exam: TM's normal, pharynx normal and neck supple
Eye Exam
Eye Exam: EOMI
Cardiovascular Exam
Cardiovascular Exam: regular rate/rhythm, no edema, no murmur and normal peripheral pulses
Pulmonary Exam
Pulmonary Exam: lungs clear, no respiratory distress, no rales, chest non tender, no crackles, no rhonchi, no wheezing and no cough
Gastrointestinal Exam
Gastrointestinal Exam: normal bowel sounds, soft, no organomegaly, no pulsatile mass, non distended, tender (Right sided abd tenderness with palpation) and other (obese)
Musculoskeletal Exam
Musculoskeletal Exam: full ROM and no edema
Skin Exam
Skin Exam: normal color, warm/dry, no rash and no petechia
Psychiatric Exam
Psychiatric Exam: normal mood/affect
Course
Orders/Labs/Results
Orders:
Orders
08/03/24 18:31
Test Result ONCE
08/03/24 18:39
Complete Blood Count/With Diff Urgent
08/03/24 18:51
0.9% Sodium Chloride 1000 ml [Nss] 1,000 ml IV BOLUS
US Pelvis Only (non-obstetric) Urgent
Comment:
Reason For Exam: Right lower abd pain
08/03/24 18:52
CT Abd/pelvis W Iv Cont Urgent
Comment:
Reason For Exam: Right lower abd pain
08/03/24 18:54
Ondansetron Injectable [Zofran] 4 mg IV NOW STA
08/03/24 18:55
Electrocardiogram (*1) Urgent
Reason for Study: Chest Pain
EKG- Treatment ONCE
08/03/24 18:57
Ketorolac [Toradol] 30 mg IV NOW STA
08/03/24 19:02
Troponin I Urgent
Urinalysis Reflex To Culture Urgent
Date Specimen was Collected: 08/03/24
Time Specimen was Collected: 18:58
08/03/24 19:06
Comprehensive Metabolic Panel Urgent
Comment: COMBO
HCG, Serum Qualitative Screen Urgent
08/03/24 20:24
Acetaminophen [Tylenol] 1,000 mg PO NOW STA
Abnormal Lab Results
08/03/24 08/03/24
18:39 19:06
WBC 16.0 H 10^3/uL
(4.8-10.8)
RDW 15.2 H %
(11.5-14.5)
Abs Immat Gran (auto) 0.1 H 10^3/uL
(0-0.05)
Absolute Neuts (auto) 8.5 H 10^3/uL
(1.4-6.5)
Absolute Lymphs (auto) 5.7 H 10^3/uL
(1.2-3.4)
Absolute Monos (auto) 1.2 H 10^3/uL
(0.1-0.6)
Chloride 109 H mmol/L
(98-107)
BUN 4 L mg/dl
(7-17)
08/03/24 18:39
08/03/24 19:06
Leukocytosis (Consistent with prior labs), chloride slightly elevated. troponin <0.012, HCG negative, urine negative for infection.
Vital Signs
Initial and Last Documented VS:
Initial Vital Signs
Temp Pulse Resp BP Pulse Ox
98.4 F 106 20 128/86 100
08/03/24 18:10 08/03/24 18:10 08/03/24 18:10 08/03/24 18:10 08/03/24 18:10
Last Documented Vital Signs
Temp Pulse Resp BP Pulse Ox
98.4 F 83 19 137/89 96
08/03/24 18:10 08/03/24 20:26 08/03/24 20:26 08/03/24 20:26 08/03/24 20:45
MDM/Problems Addressed
Differential Diagnosis Includes:
Appendicitis. ovarian cyst rupture
MDM/Problems Addressed:
This is a 24 year old female that comes in with c/o right sided abd pain. States that this started at 12 noon and has progressively gotten worse.
Will check labs. Pelvic US and CT as needed. Will medicate for pain and give IV fluids.
Back into see patient. Explained that her blood work shows that her WBC are elevation. This can happen with stress. Your Urine is negative for infection and your CT scan and US are both normal. Patient to follow up with the family doctor. Tylenol or
Ibuprofen for pain. Return with any concerns.
Chronic conditions affecting care:
PCOS,
Chronic conditions affecting care: Cancer (cervical)
Acute Exacerbation and/or Progression of Chronic Illness:
PCOS
*Radiology
Radiology exam reviewed: radiology read reviewed (CT-No acute findings in the abdomen or pelvis, specifically no evidence of acute appendicitis. US-Difficult study secondary to patient body habitus. In addition, the patient refused endovaginal
examination. bilateral ovarian blood flow documented. Intrauterine contraceptive device in place. . )
*Pulse Oximetry
Patient hypoxic: no
*EKG
Interpreted by ED Provider?: Yes
Heart Rate: 83
Rhythm: sinus
Varney: normal axis
Interval: normal interval
QRS Pattern: normal QRS
Ischemia: no ischemia
*Assembly Stock Supervisor Interpretation
Rate: Assembly Stock Supervisor- N/A
*Critical Care Note
Total Time (30-74mins, 75-104mins- exclusive of procedures): Not Applicable
ED Attending Note
-
Portions of this chart may have been created with voice recognition software.� Occasional wrong word or��sound alike� substitutions may have occurred due to the inherent limitations of voice recognition software.
Discharge Plan
Departure
Patient Disposition: Home (Routine Discharge)
Date of Disposition: 08/03/24
Time of Disposition: 22:37
Patient with high blood pressure during this ER visit?: Yes
Condition: Good
Covid-19: Not Applicable
Discharge Problem:
Lower abdominal pain
Instructions: Abdominal Pain, BLOOD PRESSURE
Prescriptions:
No Action
albuterol sulfate 1 PUFF HFA aerosol inhaler
2 puff inhalation R Q4HPRN PRN (Reason: asthma)
cholecalciferol (vitamin D3) [Vitamin D3] 1,000 UNIT capsule
2,000 unit PO DAILY
cetirizine 10 MG tablet
10 mg PO DAILY
venlafaxine 150 mg tablet extended release 24hr
150 mg PO DAILY Qty: 30 0RF
omeprazole 40 mg capsule,delayed release(DR/EC)
40 mg PO BID Qty: 60 0RF
hyoscyamine sulfate 0.125 mg tablet,disintegrating
0.125 mg PO QID PRN (Reason: dyspepsia) Qty: 120 0RF
famotidine 20 mg tablet
20 mg PO BID Qty: 30 0RF
lorazepam [Ativan] 0.5 mg Tablet
0.5 mg PO DAILY
aripiprazole 5 mg Tablet
7.5 mg PO DAILY
Liletta 20.4 mcg/24 hrs (8 yrs) 52 mg Intrauterine Device
1 device INTRAUTERINE ONCE
hydroxyzine HCl 25 mg tablet
25 mg PO BID PRN (Reason: nausea)
diclofenac sodium 75 mg tablet,delayed release (DR/EC)
75 mg PO BID Qty: 10 0RF
clindamycin HCl 150 mg capsule
450 mg PO TID 10 Days Qty: 90 0RF
hydrocodone-acetaminophen 5-300 mg tablet
1 tab PO BID PRN (Reason: Pain) Qty: 8 0RF
ondansetron 4 mg tablet,disintegrating
4 mg PO TIDPRN PRN (Reason: nausea/vomiting) Qty: 10 0RF
Referrals:
Roe Mcpherson MD [Family Provider] - Call in 1-3 days for appt
Activity Restrictions/Additional Instructions:
As discussed, your blood work shows that your white blood cell count is mildly elevated. This is consistent with your prior labs. Your CT scan and Ultrasound are both normal. Follow up with the family doctor and your TREATING AND PUMPING SUPERVISOR for further evaluation.
Please increase your water intake to 8-8oz glasses daily. Tylenol or Ibuprofen as needed for any discomfort. IF YOU HAVE ANY OTHER CONCERNS PLEASE RETURN TO THE EMERGENCY ROOM.
Interventions
Interventions:
*Risk Screen - Suicide Last Done: 08/03/24 18:10
*General Assessment Last Done: 08/03/24 18:10
*Neglect/Abuse Screening Last Done: 08/03/24 18:10
UY-Arxwxw-Hpuvmziody Assessment Last Done: 08/03/24 19:09
Discharge Date and Time
Print Language: ANDORRAN
[2024-08-03] MEDS: NSS 1000 IV (18:54)
[2024-08-03] MEDS: ZOFRAN 4 MG IV (19:08)
[2024-08-03] MEDS: TORADOL 30 MG IV (19:08)
[2024-08-03 19:19] LABS: Urine Albumin Negative (Neg - Trace); Urine Bilirubin Negative (Negative); Urine Character Clear (Clear); Urine Color Yellow; Urine Glucose Negative (Negative); Urine Ketone Negative (Negative); Urine Leukocyte Negative (Negative); Urine Nitrite Negative (Negative); Urine Occult Blood Negative (Negative); Urine Urobilinogen Negative (Neg - 1+)
[2024-08-03 19:27] LABS: HCG, Serum Qualitative Screen Negative
[2024-08-03 19:30] LABS: ALT (SGPT) 31 U/L (0-35); AST (SGOT) 24 U/L (14-36); Albumin 3.9 g/dl (3.5-5.0); Alkaline Phosphatase 58 U/L (38-126); Blood Urea Nitrogen 4 mg/dl (7-17); Calcium 9.1 mg/dl (8.4-10.2); Carbon Dioxide 23 mmol/L (22-30); Chloride 109 mmol/L (98-107); Glucose 92 mg/dl (70-99); Potassium 4.2 mmol/L (3.5-5.1); Sodium 143 mmol/L (135-145); Total Bilirubin 0.3 mg/dl (0.2-1.3); Total Protein 6.6 g/dl (6.3-8.2); eGFR > 60.00
[2024-08-03 19:50] LABS: Troponin I < 0.012 ng/ml
[2024-08-03 19:58] VITALS: BP 115/68
[2024-08-03 20:00] VITALS: BP 111/59
[2024-08-03] MEDS: TYLENOL 1000 MG PO (20:24)
[2024-08-03 20:26] VITALS: BP 137/89
== END 2024-08-03 22:54 | disposition home or self-care (01) ==
LOC: EMR 18:09
PROVIDERS: Clinical Nurse Specialist Family Health; Emergency Medicine; EMERGENCY PHYSICIAN Emergency Medicine; FAMILY PHYSICIAN Family Medicine
DX: R10.31 Right lower quadrant pain (principal); F84.0 Autistic disorder; J45.909 Unspecified asthma, uncomplicated; K21.9 Gastro-esophageal reflux disease without esophagitis; R07.89 Other chest pain; Z85.41 Personal history of malignant neoplasm of cervix uteri; F17.200 Nicotine dependence, unspecified, uncomplicated; Z87.442 Personal history of urinary calculi
CPT/HCPCS: 96374; 96375; 96361; 99284; 74177; 76856; 80053; 81003; 84484; 84703; 85025; 93005; Q9967

== ENCOUNTER → 2024-11-24 10:19 | Outpatient (REF) | payer OTHER, SELFPAY | LOC: RAD 10:19 | PROVIDERS: ATTENDING PHYSICIAN Student in an Organized Health Care Education/Training Program | DX: M25.561 Pain in right knee (principal) | CPT/HCPCS: 73564 ==

== ENCOUNTER → 2024-12-17 06:37 | Outpatient (REF) | payer OTHER, SELFPAY | LOC: MRI 3T 06:37 | PROVIDERS: ATTENDING PHYSICIAN Student in an Organized Health Care Education/Training Program | DX: M25.561 Pain in right knee (principal); S83.206A Unspecified tear of unspecified meniscus, current injury, right knee, initial encounter | CPT/HCPCS: 73721 ==

== ENCOUNTER 2025-02-05 13:53 | Emergency (ER) | payer OTHER, SELFPAY ==
[2025-02-05 13:56] VITALS: BP 118/90
[2025-02-05] MEDS: DECADRON 10 MG IM (14:24)
[2025-02-05 14:28] VITALS: BP 115/76
--- NOTE | 2025-02-05 14:44 | ED.GENMED ---
History of Present Illness
General
Chief Complaint: Allergic Reaction
Source: patient
Exam Limitations: none
Time Seen by Provider: 02/05/25 14:01
Nursing documentation reviewed up to this point in time: agreed with
History of Present Illness
History of Present Illness:
24-year-old female with a history of asthma, GERD, PCOS, anxiety, schizophrenia, POTS
Presents for symptoms which she believes are an allergic reaction to lukasz. Patient says in the past when she has had lukasz her tongue is tingled but she usually tries to avoid it but today she ate a piece of frozen lukasz and within 20 minutes was
itchy all over and felt like her face was swollen.
she also has felt nausea and had some shortness of breath
she took benadryl 50 mg about 1 hour ago
she feels not much better; she has not vomited or had any trouble swallowing
pt says she did ingest the lukasz knowingly to sese what woul
Past History
Past History
ED Past Medical History: Asthma (smoker), Cancer (Cervical cancer), GERD (hiatal hernia, IBS), Seizures, Psychiatric (ADHD, depression, suicide attempt, Anxiety, Schizo, PTSD, Autism) and Other (Lower body nerve damage, Hiatal hernia, IBS,
Endometriosis, Ovarian cyst, PCOS, Pelvic floor dysfunction, Eczema, kidney stones)
ED Past Surgical History: Cholecystectomy, Gynecological (LEEP, ) and Tonsilectomy (and adenoids)
Social History
Tobacco: Smoker
Alcohol: None
Drug: Marijuana
Personal: Single (Has a Partner same sex)
Living: with family
Review of Systems
Review of Systems
Allergies reviewed?: Yes
All Other Systems: Not applicable
Phy Exam
Physical Exam
Physical Exam:
GENERAL: Alert , in no apparent distress, comfortable
face: no facial swelling appreciated
EYE: pupils equal and reactive
NECK: Supple
ENT: o/p clr, mmm.
uvula appeared possibly minimally swollen
no hoarseness to voice, no erythema, tolerating secretions no tongue swelling
CARDIAC: Regular rate and rhythm . (tachy initially not in the ER room)
LUNGS: Clear breath sounds bilaterally, no acute respiratory distress, no wheezes/rales/rhonchi
ABDOMEN: Soft, without focal tenderness, no r/g, no cvat, normal bowel sounds
NEUROLOGICAL: Alert and oriented, no focal neuro deficits
SKIN: Warm and dry, skin intact.
spome mild blotchiness and excoriation where she was scratchign; no definitive hives
PSYCH: Normal and appropriate interaction.
Course
Orders/Labs/Results
Orders:
Orders
02/05/25 14:16
EPINEPHrine PF [Adrenalin] 0.3 mg IM NOW STA
02/05/25 14:19
Dexamethasone Sod Phosphate [Decadron] 10 mg IM NOW STA
Vital Signs
Initial and Last Documented VS:
Initial Vital Signs
Temp Pulse Resp BP Pulse Ox
36.7 C 120 16 118/90 98
02/05/25 13:56 02/05/25 13:56 02/05/25 13:56 02/05/25 13:56 02/05/25 13:56
Last Documented Vital Signs
Temp Pulse Resp BP Pulse Ox
36.7 C 95 18 115/76 97
02/05/25 13:56 02/05/25 14:28 02/05/25 14:28 02/05/25 14:28 02/05/25 14:28
MDM/Problems Addressed
Differential Diagnosis Includes:
allergic reaction vs. anaphylaxis
ED Attending Note
-
Portions of this chart may have been created with voice recognition software.� Occasional wrong word or��sound alike� substitutions may have occurred due to the inherent limitations of voice recognition software.
Discharge Plan
Departure
Patient Disposition: Home (Routine Discharge)
Date of Disposition: 02/05/25
Time of Disposition: 15:45
Patient with high blood pressure during this ER visit?: No
Condition: Fair
Covid-19: Not Applicable
Discharge Problem:
Allergic reaction
Instructions: Allergic reaction - ED discharge instructions
Prescriptions:
New
epinephrine [EpiPen 2-Alexis] 0.3 mg/0.3 mL auto-injector
0.3 mg IM ONCE PRN (Reason: anaphylaxis) Qty: 2 0RF
prednisone 50 mg tablet
50 mg PO DAILY Qty: 3 0RF
No Action
albuterol sulfate 1 PUFF HFA aerosol inhaler
2 puff inhalation R Q4HPRN PRN (Reason: asthma)
cholecalciferol (vitamin D3) [Vitamin D3] 1,000 UNIT capsule
2,000 unit PO DAILY
cetirizine 10 MG tablet
10 mg PO DAILY
venlafaxine 150 mg tablet extended release 24hr
150 mg PO DAILY Qty: 30 0RF
omeprazole 40 mg capsule,delayed release(DR/EC)
40 mg PO BID Qty: 60 0RF
hyoscyamine sulfate 0.125 mg tablet,disintegrating
0.125 mg PO QID PRN (Reason: dyspepsia) Qty: 120 0RF
famotidine 20 mg tablet
20 mg PO BID Qty: 30 0RF
lorazepam [Ativan] 0.5 mg Tablet
0.5 mg PO DAILY
aripiprazole 5 mg Tablet
7.5 mg PO DAILY
Liletta 20.4 mcg/24 hrs (8 yrs) 52 mg Intrauterine Device
1 device INTRAUTERINE ONCE
hydroxyzine HCl 25 mg tablet
25 mg PO BID PRN (Reason: nausea)
diclofenac sodium 75 mg tablet,delayed release (DR/EC)
75 mg PO BID Qty: 10 0RF
clindamycin HCl 150 mg capsule
450 mg PO TID 10 Days Qty: 90 0RF
hydrocodone-acetaminophen 5-300 mg tablet
1 tab PO BID PRN (Reason: Pain) Qty: 8 0RF
ondansetron 4 mg tablet,disintegrating
4 mg PO TIDPRN PRN (Reason: nausea/vomiting) Qty: 10 0RF
Referrals:
Roe Mcpherson MD [Family Provider, [facility]] - Follow up in 2-3 days
Activity Restrictions/Additional Instructions:
You seem to have an allergic reaction to lukasz. Please avoid this in the future. In the meantime take Benadryl 50 mg every 6 hours for the next 2 days as needed for itching. Starting tomorrow morning use prednisone once a day for 3 days. I
prescribed an EpiPen if you feel like you are suddenly getting worse facial swelling, throat closing, breathing problems you should return to the ER immediately and after using the EpiPen, call 911. Return for any concerns
Interventions
Interventions:
*Risk Screen - Suicide Last Done: 02/05/25 13:56
*General Assessment Last Done: 02/05/25 14:28
*Neglect/Abuse Screening Last Done: 02/05/25 13:56
*Nursing Disposition Last Done: 02/05/25 15:59
ED- Cardiac Assessment Last Done: 02/05/25 15:59
ED-Skin Assessment Last Done: 02/05/25 14:07
Discharge Date and Time
Discharge Date/Time: 02/05/25 15:59
Print Language: GUYANESE
== END 2025-02-05 15:59 | disposition home or self-care (01) ==
LOC: EMR 13:53
PROVIDERS: EMERGENCY PHYSICIAN Student in an Organized Health Care Education/Training Program; FAMILY PHYSICIAN Family Medicine
DX: T78.40XA Allergy, unspecified, initial encounter (principal); Y92.9 Unspecified place or not applicable; J45.909 Unspecified asthma, uncomplicated; K21.9 Gastro-esophageal reflux disease without esophagitis; E28.2 Polycystic ovarian syndrome; F41.8 Other specified anxiety disorders; F20.9 Schizophrenia, unspecified; G90.A Postural orthostatic tachycardia syndrome [POTS]; F43.10 Post-traumatic stress disorder, unspecified; F84.0 Autistic disorder; K58.9 Irritable bowel syndrome, unspecified; F17.200 Nicotine dependence, unspecified, uncomplicated; Z85.41 Personal history of malignant neoplasm of cervix uteri; Z90.49 Acquired absence of other specified parts of digestive tract; Z91.51 Personal history of suicidal behavior
CPT/HCPCS: 99282; 96372

== ENCOUNTER 2025-02-09 18:39 | Emergency (ER) | payer OTHER, SELFPAY ==
[2025-02-09 18:43] VITALS: BP 122/86
[2025-02-09 19:06] LABS: Hematocrit 46.6 % (37.0-47.0); Hemoglobin 15.4 g/dL (12.0-16.0); Mean Corpuscular Hgb 28.3 pg (27.0-31.0); Mean Corpuscular Volume 85.7 fL (81.0-99.0); Mean Platelet Volume 10.2 fL (7.4-10.4); Platelet Count 347 10^3/uL (130-400); Red Blood Cell Count 5.44 10^6/uL (4.20-5.40); Red Cell Dist. Width 15.4 % (11.5-14.5); White Blood Cell Count 20.8 10^3/uL (4.8-10.8)
[2025-02-09 19:15] LABS: ALT (SGPT) 46 U/L (0-35); AST (SGOT) 22 U/L (14-36); Albumin 4.1 g/dl (3.5-5.0); Alkaline Phosphatase 57 U/L (38-126); Blood Urea Nitrogen 14 mg/dl (7-17); Calcium 9.5 mg/dl (8.4-10.2); Carbon Dioxide 27 mmol/L (22-30); Chloride 110 mmol/L (98-107); Glucose 95 mg/dl (70-99); Lipase 422 U/L (23-300); Potassium 4.5 mmol/L (3.5-5.1); Sodium 142 mmol/L (135-145); Total Bilirubin 0.3 mg/dl (0.2-1.3); Total Protein 6.8 g/dl (6.3-8.2); eGFR > 60.00
[2025-02-09 19:21] LABS: % Basophils 0.4 % (0-2); % Immature Granulocytes 0.5 % (0-0.5); % Lymphocytes 35.9 % (20.5-51.1); % Monocytes 7.4 % (1.7-9.3); % Neutrophils 54.8 % (42.2-75.2); Absolute Basophils 0.1 10^3/uL (0-0.2); Absolute Eosinophils 0.2 10^3/uL (0-0.7); Absolute Immature Granulocytes 0.1 10^3/uL (0-0.05); Absolute Lymphocytes 7.5 10^3/uL (1.2-3.4); Absolute Monocytes 1.5 10^3/uL (0.1-0.6); Absolute Neutrophils 11.4 10^3/uL (1.4-6.5); Nucleated Red Blood Cells % 0 %
[2025-02-09 21:16] VITALS: BP 126/85
[2025-02-09 22:21] VITALS: BP 118/79; BMI 49.3
[2025-02-09 23:00] VITALS: BP 119/70
[2025-02-09] MEDS: ZOFRAN 4 MG IV (23:11)
[2025-02-09] MEDS: TORADOL 15 MG IV (23:11)
[2025-02-09] MEDS: NSS 1000 IV (23:13)
[2025-02-09 23:36] LABS: HCG, Serum Qualitative Screen Negative
[2025-02-10] VITALS: BP 115/51
--- NOTE | 2025-02-10 00:03 | ED.GENMED ---
History of Present Illness
<DELMY Cid Jr. Last Filed: 02/11/25 08:23>
General
Chief Complaint: Abdominal Symptoms
Source: patient
Exam Limitations: none
Time Seen by Provider: 02/09/25 22:43
Nursing documentation reviewed up to this point in time: agreed with
History of Present Illness
History of Present Illness:
24-year-old female presenting to the emergency department today with concerns of worsening abdominal pain mainly to the right side mainly to the lower abdomen worsening over the past few hours. Has associated nausea.
Past History
<DELMY Cid Jr. Last Filed: 02/11/25 08:23>
Past History
ED Past Medical History: Asthma (smoker), Cancer (Cervical cancer), GERD (hiatal hernia, IBS), Seizures, Psychiatric (ADHD, depression, suicide attempt, Anxiety, Schizo, PTSD, Autism) and Other (Lower body nerve damage, Hiatal hernia, IBS,
Endometriosis, Ovarian cyst, PCOS, Pelvic floor dysfunction, Eczema, kidney stones)
ED Past Surgical History: Cholecystectomy, Gynecological (LEEP, ) and Tonsilectomy (and adenoids)
Social History
Tobacco: Smoker
Alcohol: None
Drug: Marijuana
Personal: Single (Has a Partner same sex)
Living: with family
Review of Systems
<DELMY Cid Jr. Last Filed: 02/11/25 08:23>
Review of Systems
Allergies reviewed?: Yes
All Other Systems: ROS reviewed and negative except as documented in HPI and ROS
Phy Exam
<DELMY Cid Jr. Last Filed: 02/11/25 08:23>
Physical Exam
Physical Exam:
GENERAL: Alert , in no apparent distress
EYE: pupils equal and reactive
NECK: Supple, no significant adenopathy.
ENT: o/p clr, mmm.
CARDIAC: Regular rate and rhythm .
LUNGS: Clear breath sounds bilaterally, no acute respiratory distress, no wheezes/rales/rhonchi
ABDOMEN: Tenderness palpation to the right side of the abdomen mainly to the right lower quadrant.
NEUROLOGICAL: Alert and oriented, no focal neuro deficits
SKIN: Warm and dry, skin intact.
MUSCULOSKELETAL: No edema, well perfused.
PSYCH: Normal and appropriate interaction.
Course
<Louis Correa Jr., PA-C - Last Filed: 02/11/25 08:23>
Orders/Labs/Results
Orders:
Orders
02/09/25 18:53
Complete Blood Count/With Diff Urgent
Comprehensive Metabolic Panel Urgent
HCG, Serum Qualitative Screen Urgent
Comment: ADD ON
Lipase Urgent
02/09/25 23:03
Add On- LAB Urgent
Tests Added?: HCG qual serum
Ketorolac [Toradol] 15 mg IV NOW STA
Ondansetron Injectable [Zofran] 4 mg IV NOW STA
02/09/25 23:04
0.9% Sodium Chloride 1000 ml [Nss] 1,000 ml IV BOLUS
02/10/25
CT Abd/Pel (IV only)-DH only Urgent
Reason For Exam: diffuse abd pain
02/10/25 01:06
Ketorolac [Toradol] 15 mg IV NOW STA
Ondansetron HCl [Zofran] 4 mg PO NOW STA
02/10/25 01:14
Ondansetron Injectable [Zofran] 4 mg .ROUTE .STK-MED ONE
02/10/25 01:18
Ondansetron Injectable [Zofran] 4 mg IV NOW STA
02/10/25 02:31
HYDROmorphone [Dilaudid] 0.5 mg IV NOW STA
Abnormal Lab Results
02/09/25
18:53
WBC 20.8 H 10^3/uL
(4.8-10.8)
RBC 5.44 H 10^6/uL
(4.20-5.40)
RDW 15.4 H %
(11.5-14.5)
Abs Immat Gran (auto) 0.1 H 10^3/uL
(0-0.05)
Absolute Neuts (auto) 11.4 H 10^3/uL
(1.4-6.5)
Absolute Lymphs (auto) 7.5 H 10^3/uL
(1.2-3.4)
Absolute Monos (auto) 1.5 H 10^3/uL
(0.1-0.6)
Chloride 110 H mmol/L
(98-107)
ALT 46 H U/L
(0-35)
Lipase 422 H U/L
(23-300)
02/09/25 18:53
02/09/25 18:53
Vital Signs
Initial and Last Documented VS:
Initial Vital Signs
Temp Pulse Resp BP Pulse Ox
98.3 F 88 20 122/86 97
02/09/25 18:43 02/09/25 18:43 02/09/25 18:43 02/09/25 18:43 02/09/25 18:43
Last Documented Vital Signs
Temp Pulse Resp BP Pulse Ox
98 F 96 16 105/65 95
02/09/25 22:21 02/09/25 21:16 02/09/25 21:16 02/10/25 02:00 02/10/25 02:45
Nelalt;Shirley Guzmán PA-C - Last Filed: 02/10/25 06:50>
Orders/Labs/Results
Orders:
Orders
02/09/25 18:53
Complete Blood Count/With Diff Urgent
Comprehensive Metabolic Panel Urgent
HCG, Serum Qualitative Screen Urgent
Comment: ADD ON
Lipase Urgent
02/09/25 23:03
Add On- LAB Urgent
Tests Added?: HCG qual serum
Ketorolac [Toradol] 15 mg IV NOW STA
Ondansetron Injectable [Zofran] 4 mg IV NOW STA
02/09/25 23:04
0.9% Sodium Chloride 1000 ml [Nss] 1,000 ml IV BOLUS
02/10/25
CT Abd/Pel (IV only)-DH only Urgent
Reason For Exam: diffuse abd pain
02/10/25 01:06
Ketorolac [Toradol] 15 mg IV NOW STA
Ondansetron HCl [Zofran] 4 mg PO NOW STA
02/10/25 01:14
Ondansetron Injectable [Zofran] 4 mg .ROUTE .STK-MED ONE
02/10/25 01:18
Ondansetron Injectable [Zofran] 4 mg IV NOW STA
02/10/25 02:31
HYDROmorphone [Dilaudid] 0.5 mg IV NOW STA
Abnormal Lab Results
02/09/25
18:53
WBC 20.8 H 10^3/uL
(4.8-10.8)
RBC 5.44 H 10^6/uL
(4.20-5.40)
RDW 15.4 H %
(11.5-14.5)
Abs Immat Gran (auto) 0.1 H 10^3/uL
(0-0.05)
Absolute Neuts (auto) 11.4 H 10^3/uL
(1.4-6.5)
Absolute Lymphs (auto) 7.5 H 10^3/uL
(1.2-3.4)
Absolute Monos (auto) 1.5 H 10^3/uL
(0.1-0.6)
Chloride 110 H mmol/L
(98-107)
ALT 46 H U/L
(0-35)
Lipase 422 H U/L
(23-300)
02/09/25 18:53
02/09/25 18:53
Vital Signs
Initial and Last Documented VS:
Initial Vital Signs
Temp Pulse Resp BP Pulse Ox
98.3 F 88 20 122/86 97
02/09/25 18:43 02/09/25 18:43 02/09/25 18:43 02/09/25 18:43 02/09/25 18:43
Last Documented Vital Signs
Temp Pulse Resp BP Pulse Ox
98 F 96 16 105/65 95
02/09/25 22:21 02/09/25 21:16 02/09/25 21:16 02/10/25 02:00 02/10/25 02:45
<Louis Correa Jr., PA-C - Last Filed: 02/11/25 08:23>
MDM/Problems Addressed
MDM/Problems Addressed:
24-year-old female presenting to the emergency department today with concerns of abdominal discomfort mainly to the right lower quadrant worsening over the past few hours. Does have associated nausea. On arrival vital signs are normal patient in
no obvious distress does have reproducible pain. White count 20.8 other labs unremarkable. Plan for CT scan for further assessment.
<Shirley Guzmán PA-C - Last Filed: 02/10/25 06:50>
*Critical Care Note
Total Time (30-74mins, 75-104mins- exclusive of procedures): Not Applicable
<Shirley Guzmán PA-C - Last Filed: 02/10/25 06:50>
Update Note
Update Note:
Update
Shirley Guzmán PA-C
I received this patient in signout. On my assessment, patient is well-appearing no acute distress however she notes that her pain persists and was requesting stronger pain medication. Patient reports that she has a history of fibromyalgia and has
a high tolerance against different pain medications and reports that Toradol does not usually work. Did discuss morphine as listed allergy with patient however patient reports that she is able to tolerate small doses of Dilaudid. Did order small
dose of Dilaudid. Her abdomen is soft. Did review CT scan findings no evidence of acute appendicitis but there is a large stool burden. Discussed starting a stool regimen with patient. Pain does not seem to be in the pelvis. Doubt ovarian
torsion. Patient is trying to find a GI doctor that covers her insurance. Discussed following with the [facility] and calling the attached number to try to schedule appointment. Patient stable for discharge
ED Attending Note
<Louis Correa Jr., PA-C - Last Filed: 02/11/25 08:23>
-
Portions of this chart may have been created with voice recognition software.� Occasional wrong word or��sound alike� substitutions may have occurred due to the inherent limitations of voice recognition software.
Discharge Plan
Departure
Patient Disposition: Home (Routine Discharge)
Date of Disposition: 02/10/25
Time of Disposition: 02:36
Patient with high blood pressure during this ER visit?: No
Condition: Good
Discharge Problem:
Abdominal pain
Instructions: Abdominal Pain, BLOOD PRESSURE
Prescriptions:
No Action
albuterol sulfate 1 PUFF HFA aerosol inhaler
2 puff inhalation R Q4HPRN PRN (Reason: asthma)
cholecalciferol (vitamin D3) [Vitamin D3] 1,000 UNIT capsule
2,000 unit PO DAILY
cetirizine 10 MG tablet
10 mg PO DAILY
venlafaxine 150 mg tablet extended release 24hr
150 mg PO DAILY Qty: 30 0RF
omeprazole 40 mg capsule,delayed release(DR/EC)
40 mg PO BID Qty: 60 0RF
hyoscyamine sulfate 0.125 mg tablet,disintegrating
0.125 mg PO QID PRN (Reason: dyspepsia) Qty: 120 0RF
famotidine 20 mg tablet
20 mg PO BID Qty: 30 0RF
lorazepam [Ativan] 0.5 mg Tablet
0.5 mg PO DAILY
aripiprazole 5 mg Tablet
7.5 mg PO DAILY
Liletta 20.4 mcg/24 hrs (8 yrs) 52 mg Intrauterine Device
1 device INTRAUTERINE ONCE
hydroxyzine HCl 25 mg tablet
25 mg PO BID PRN (Reason: nausea)
diclofenac sodium 75 mg tablet,delayed release (DR/EC)
75 mg PO BID Qty: 10 0RF
clindamycin HCl 150 mg capsule
450 mg PO TID 10 Days Qty: 90 0RF
hydrocodone-acetaminophen 5-300 mg tablet
1 tab PO BID PRN (Reason: Pain) Qty: 8 0RF
ondansetron 4 mg tablet,disintegrating
4 mg PO TIDPRN PRN (Reason: nausea/vomiting) Qty: 10 0RF
epinephrine [EpiPen 2-Alexis] 0.3 mg/0.3 mL auto-injector
0.3 mg IM ONCE PRN (Reason: anaphylaxis) Qty: 2 0RF
prednisone 50 mg tablet
50 mg PO DAILY Qty: 3 0RF
Referrals:
Roe Mcpherson MD [Family Provider, Family Practice]
Nikia Skinner DO [Active, Gastroenterology] - Call in 1-3 days for appt
Activity Restrictions/Additional Instructions:
Please start taking MiraLAX. Please mix 1 tablespoon in with drink of choice once daily.
Your CT scan did not show any evidence of appendicitis. Your blood cell count was elevated today, please follow-up with your primary care provider to have your blood work repeated in 1 to 2 weeks.
Please call attached number to schedule appointment with gastroenterology.
PLEASE RETURN TO THE EMERGENCY DEPARTMENT SHOULD YOU DEVELOP ACUTE WORSENING OF YOUR SYMPTOMS, INTRACTABLE NAUSEA OR VOMITING, FEVERS OR CHILLS, CHEST PAIN, SHORTNESS OF BREATH, OR ANY OTHER SIGNS OR SYMPTOMS WORRISOME TO YOU
Interventions
Interventions:
*Risk Screen - Suicide Last Done: 02/09/25 18:43
*General Assessment Last Done: 02/09/25 18:43
*Neglect/Abuse Screening Last Done: 02/09/25 18:43
*ED- Fall Risk Assessment Last Done: 02/09/25 22:13
*ED COVID-19 Vaccine History Last Done: 02/09/25 22:13
*Nursing Disposition Last Done: 02/10/25 02:57
[facility] Assessment Last Done: 02/09/25 22:55
Discharge Date and Time
Discharge Date/Time: 02/10/25 02:58
Print Language: FRISIAN
[2025-02-10 01:03] VITALS: BP 124/109
[2025-02-10] MEDS: TORADOL 15 MG IV (01:18)
[2025-02-10] MEDS: ZOFRAN 4 MG IV (01:18)
[2025-02-10 02:00] VITALS: BP 105/65
[2025-02-10] MEDS: DILAUDID 0.5 MG IV (02:47)
== END 2025-02-10 02:58 | disposition home or self-care (01) ==
LOC: EMR 18:39
PROVIDERS: Emergency Medicine; EMERGENCY PHYSICIAN Emergency Medicine; FAMILY PHYSICIAN Family Medicine
DX: R10.9 Unspecified abdominal pain (principal); J45.909 Unspecified asthma, uncomplicated; K21.9 Gastro-esophageal reflux disease without esophagitis; K44.9 Diaphragmatic hernia without obstruction or gangrene; K58.9 Irritable bowel syndrome, unspecified; F90.9 Attention-deficit hyperactivity disorder, unspecified type; F20.9 Schizophrenia, unspecified; F43.10 Post-traumatic stress disorder, unspecified; N80.9 Endometriosis, unspecified; E28.2 Polycystic ovarian syndrome; L30.9 Dermatitis, unspecified; F32.A Depression, unspecified; F17.200 Nicotine dependence, unspecified, uncomplicated; F41.9 Anxiety disorder, unspecified; F84.0 Autistic disorder; M79.7 Fibromyalgia; Z85.41 Personal history of malignant neoplasm of cervix uteri; Z90.49 Acquired absence of other specified parts of digestive tract; Z91.51 Personal history of suicidal behavior
CPT/HCPCS: 99284; 96374; 96375; 96376; 96361; 74177; 80053; 83690; 84703; 85025; Q9967

== ENCOUNTER → 2025-05-28 08:16 | Outpatient (REF) | payer OTHER, SELFPAY | LOC: HWRAD 08:16 | PROVIDERS: FAMILY PHYSICIAN Student in an Organized Health Care Education/Training Program | DX: T83.32XA Displacement of intrauterine contraceptive device, initial encounter (principal) | CPT/HCPCS: 76830; 76856 ==

== ENCOUNTER 2025-06-01 20:23 | Emergency (ER) | payer OTHER, SELFPAY ==
[2025-06-01 20:30] VITALS: BP 135/86
[2025-06-01 21:09] LABS: Hematocrit 46.1 % (37.0-47.0); Hemoglobin 15.1 g/dL (12.0-16.0); Mean Corp Hgb Conc. 32.8 g/dL (33.0-37.0); Mean Corpuscular Volume 86.7 fL (81.0-99.0); Nucleated Red Blood Cells % 0 %; Platelet Count 375 10^3/uL (130-400); Red Cell Dist. Width 14.2 % (11.5-14.5)
[2025-06-01 21:18] LABS: HCG, Serum Qualitative Screen Negative
[2025-06-01 21:22] LABS: ALT (SGPT) 70 U/L (0-35); AST (SGOT) 41 U/L (14-36); Albumin 4.1 g/dl (3.5-5.0); Alkaline Phosphatase 65 U/L (38-126); Blood Urea Nitrogen 10 mg/dl (7-17); Calcium 9.4 mg/dl (8.4-10.2); Carbon Dioxide 25 mmol/L (22-30); Chloride 108 mmol/L (98-107); Glucose 113 mg/dl (70-99); Potassium 4.7 mmol/L (3.5-5.1); Sodium 139 mmol/L (135-145); Total Protein 7.0 g/dl (6.3-8.2); eGFR > 60.00
[2025-06-01 21:49] LABS: Troponin I < 0.012 ng/ml
[2025-06-02] VITALS: BP 123/78
[2025-06-02 00:20] VITALS: BMI 50.0
[2025-06-02 00:31] LABS: INR 0.84; PT 11.8 Sec (11.4-14.6)
--- NOTE | 2025-06-02 01:29 | ED.GENMED ---
History of Present Illness
General
Chief Complaint: Chest Problem
Source: patient
Exam Limitations: none
Time Seen by Provider: 06/02/25 01:17
Nursing documentation reviewed up to this point in time: agreed with
History of Present Illness
History of Present Illness:
24-year-old female with a past medical history of asthma, POTS, GERD, ADHD, autism, PTSD, schizophrenia, who presents to the ER today with concerns of chest pain, dizziness, and nausea starting around 15 minutes prior to arrival. She is never had
them like this before. The dizziness is somewhat similar to POTS episodes she has had in the past. Her POTS is managed by her primary care provider. She currently does not follow with a purification director. She no longer feels short of breath but notes
that the chest pain persist. Is not radiate to the back. She has no personal history of cardiac disease. No family history of cardiac disease. She denies any recent long distance travel. Denies any redness or swelling in her lower extremities.
She does smoke tobacco products intermittently. She denies any abdominal pain or epigastric tenderness. Denies any recent heavy lifting or trauma to the chest wall. She describes the dizziness as a lightheadedness and had an episode where she
almost lost consciousness. She denies any room spinning sensation. She denies any vomiting.
Past History
Past History
ED Past Medical History: Asthma (smoker), Cancer (Cervical cancer), GERD (hiatal hernia, IBS), Seizures, Psychiatric (ADHD, depression, suicide attempt, Anxiety, Schizo, PTSD, Autism) and Other (Lower body nerve damage, Hiatal hernia, IBS,
Endometriosis, Ovarian cyst, PCOS, Pelvic floor dysfunction, Eczema, kidney stones)
ED Past Surgical History: Cholecystectomy, Gynecological (LEEP, ) and Tonsilectomy (and adenoids)
Social History
Tobacco: Smoker
Alcohol: None
Drug: Marijuana
Personal: Single (Has a Partner same sex)
Living: with family
Review of Systems
Review of Systems
All Other Systems: ROS reviewed and negative except as documented in HPI and ROS
Phy Exam
Physical Exam
Physical Exam:
General: Patient is well appearing and in no acute distress; non-toxic
Skin: Warm and dry, no rashes or lesions
Head: Normocephalic, atraumatic
Eyes: Sclera non-icteric. EOMs intact. No nystagmus.
Cardiac: Regular rate and rhythm, no murmurs, no tenderness palpation of sternal chest wall
Peripheral Vascular: No lower extremity swelling or edema
Pulm: Normal respiratory effort
Abdomen: No abdominal tenderness to palpation
Neuro: CN II-XII intact, no focal neurologic deficits. Normal gait. Normal finger-nose, [id number] testing.
Psychiatric: Appropriate mood and affect.
Course
Orders/Labs/Results
Orders:
Orders
06/01/25 20:33
Electrocardiogram (*1) Urgent
Reason for Study: Chest Pain
EKG- Treatment ONCE
Test Result ONCE
06/01/25 20:56
Complete Blood Count/With Diff Urgent
Comprehensive Metabolic Panel Urgent
HCG, Serum Qualitative Screen Urgent
Troponin I Urgent
06/01/25 21:17
Prothrombin Time Urgent
06/01/25 22:09
CR Chest - 2 Views Urgent
Comment:
Reason For Exam: sob
06/02/25
Electrocardiogram (*1) Stat
Reason for Study: Chest Pain
06/02/25 01:27
Cardiac Monitoring- Treatment ONCE
Orthostatic VS- Treatment ONCE
0.9% Sodium Chloride 1000 ml [Nss] 1,000 ml IV BOLUS
06/02/25 01:28
EKG- Treatment ONCE
06/02/25 02:07
D-Dimer Urgent
Troponin I Urgent
06/02/25 02:15
Ketorolac [Toradol] 15 mg IV NOW STA
06/02/25 04:02
Acetaminophen [Tylenol] 1,000 mg PO NOW STA
Meclizine [Antivert] 25 mg PO NOW STA
Abnormal Lab Results
06/01/25
20:56
WBC 11.9 H 10^3/uL
(4.8-10.8)
MCHC 32.8 L g/dL
(33.0-37.0)
Absolute Neuts (auto) 6.6 H 10^3/uL
(1.4-6.5)
Absolute Lymphs (auto) 4.3 H 10^3/uL
(1.2-3.4)
Absolute Monos (auto) 0.7 H 10^3/uL
(0.1-0.6)
Chloride 108 H mmol/L
(98-107)
Glucose 113 H mg/dl
(70-99)
AST 41 H U/L
(14-36)
ALT 70 H U/L
(0-35)
06/01/25 20:56
06/01/25 20:56
Vital Signs
Initial and Last Documented VS:
Initial Vital Signs
Temp Pulse Resp BP Pulse Ox
98.2 F 110 18 135/86 96
06/01/25 20:30 06/01/25 20:30 06/01/25 20:30 06/01/25 20:30 06/01/25 20:30
Last Documented Vital Signs
Temp Pulse Resp BP Pulse Ox
98.2 F 89 14 138/90 95
06/01/25 20:30 06/02/25 06:03 06/02/25 06:03 06/02/25 06:03 06/02/25 06:03
MDM/Problems Addressed
Differential Diagnosis Includes:
Differentials include ACS, PE costochondritis, GERD, BPPV, cardiac dysrhythmia, panic attack
MDM/Problems Addressed:
24-year-old female presents the ER today with concerns of chest pain, dizziness, and nausea. She compares the dizziness similar to episodes of POTS however this feels more severe. Her chest pain is substernal and has been persistent. On physical
exam she is well-appearing in no acute distress. She has a normal neurologic exam. Nonfocal. Heart regular rate and rhythm with no murmurs. She is not in any respiratory distress. She ambulates steadily with a normal gait. Patient was given
Toradol for the chest pain which did improve her symptoms. Later on reassessment, patient notes that her dizziness feels similar to room spinning sensation. Patient's neurologic exam remained unremarkable. Suspect benign vertigo versus POTS
exacerbation. Patient given IV fluids. Patient given dose of meclizine reassessment patient is feeling much improved and is requesting to go home. Patient received repeat troponin which was undetectable. Patient does have elevated LFTs however
this has been similar to levels in the past, discussed repeat blood work with primary care provider. Patient also had D-dimer which was normal. Patient stable for discharge. Meclizine sent to pharmacy. Suspect POTS exacerbation versus vasovagal
presyncope versus costochondritis. Recommend follow-up with cardiology.
*Pulse Oximetry
SaO2: 96
Nasal Cannula flow liters per minute: 97
Oxygen Mode of Delivery: Room air
Patient hypoxic: no
*Critical Care Note
Total Time (30-74mins, 75-104mins- exclusive of procedures): Not Applicable
Update Note
Update Note:
Update, patient sleeping comfortably on exam patient's chest pain did improve with Toradol, she still notes her pain is present and she reports that she still feels dizziness now describing it as a room spinning will trial dose of meclizine,
patient's neurologic exam remains normal
ED Attending Note
-
Portions of this chart may have been created with voice recognition software.� Occasional wrong word or��sound alike� substitutions may have occurred due to the inherent limitations of voice recognition software.
Discharge Plan
Departure
Patient Disposition: Home (Routine Discharge)
Date of Disposition: 06/02/25
Time of Disposition: 05:30
Patient with high blood pressure during this ER visit?: Yes
Condition: Good
Discharge Problem:
Chest pain, Dizziness, POTS (postural orthostatic tachycardia syndrome)
Instructions: Chest Pain (DC), BLOOD PRESSURE
Prescriptions:
New
meclizine 25 mg tablet
25 mg PO TID PRN (Reason: dizziness) Qty: 10 0RF
No Action
albuterol sulfate 1 PUFF HFA aerosol inhaler
2 puff inhalation R Q4HPRN PRN (Reason: asthma)
cholecalciferol (vitamin D3) [Vitamin D3] 1,000 UNIT capsule
2,000 unit PO DAILY
cetirizine 10 MG tablet
10 mg PO DAILY
venlafaxine 150 mg tablet extended release 24hr
150 mg PO DAILY Qty: 30 0RF
omeprazole 40 mg capsule,delayed release(DR/EC)
40 mg PO BID Qty: 60 0RF
hyoscyamine sulfate 0.125 mg tablet,disintegrating
0.125 mg PO QID PRN (Reason: dyspepsia) Qty: 120 0RF
famotidine 20 mg tablet
20 mg PO BID Qty: 30 0RF
lorazepam [Ativan] 0.5 mg Tablet
0.5 mg PO DAILY
aripiprazole 5 mg Tablet
7.5 mg PO DAILY
Liletta 20.4 mcg/24 hrs (8 yrs) 52 mg Intrauterine Device
1 device INTRAUTERINE ONCE
hydroxyzine HCl 25 mg tablet
25 mg PO BID PRN (Reason: nausea)
diclofenac sodium 75 mg tablet,delayed release (DR/EC)
75 mg PO BID Qty: 10 0RF
clindamycin HCl 150 mg capsule
450 mg PO TID 10 Days Qty: 90 0RF
hydrocodone-acetaminophen 5-300 mg tablet
1 tab PO BID PRN (Reason: Pain) Qty: 8 0RF
ondansetron 4 mg tablet,disintegrating
4 mg PO TIDPRN PRN (Reason: nausea/vomiting) Qty: 10 0RF
epinephrine [EpiPen 2-Alexis] 0.3 mg/0.3 mL auto-injector
0.3 mg IM ONCE PRN (Reason: anaphylaxis) Qty: 2 0RF
prednisone 50 mg tablet
50 mg PO DAILY Qty: 3 0RF
Referrals:
Roe Mcpherson MD [Family Provider, Family Practice]
Negar Brito DO [Active, Cardiology] - Call in 1-3 days for appt
Elaine Lundberg MD [Active, Otology] - Call in 1-3 days for appt
Activity Restrictions/Additional Instructions:
You have been given a paper prescription for meclizine. You can take 1 tablet every 6 hours as needed for dizziness. Please continue to monitor your symptoms. I recommend following up with cardiology regarding your chest pain today and your
history of POTS. Please call the attached number to schedule appointment with Dr. Brito.
As discussed, your blood work is unremarkable.
PLEASE RETURN TO THE ER SHOULD YOU DEVELOP AN ACUTE WORSENING OR SYMPTOMS, LOSS OF CONSCIOUSNESS, SHORTNESS OF BREATH, INTRACTABLE NAUSEA OR VOMITING, DIFFICULTY AMBULATE, WEAKNESS IN ONE-SIDED BODY VERSUS OTHER CONFUSION, LETHARGY, OR ANY OTHER
SIGNS OR SYMPTOMS WORRISOME TO YOU.
Interventions
Interventions:
*Risk Screen - Suicide Last Done: 06/02/25 00:20
*General Assessment Last Done: 06/02/25 00:19
*Neglect/Abuse Screening Last Done: 06/02/25 02:28
*ED- Fall Risk Assessment Last Done: 06/02/25 00:21
*ED COVID-19 Vaccine History Last Done: 06/02/25 00:24
*Nursing Disposition Last Done: 06/02/25 06:03
ED- Cardiac Assessment Last Done: 06/02/25 00:18
ED- Pulmonary Assessment Last Done: 06/02/25 00:14
Discharge Date and Time
Discharge Date/Time: 06/02/25 06:05
Print Language: CITIZEN OF [place]
[2025-06-02] MEDS: NSS 1000 IV (01:53)
[2025-06-02] MEDS: TORADOL 15 MG IV (02:17)
[2025-06-02 02:25] VITALS: BP 131/78
[2025-06-02 02:27] LABS: D-Dimer 0.41 ug/mlFEU (0.00-0.50)
[2025-06-02 02:47] VITALS: BP 127/84
[2025-06-02 02:50] LABS: Troponin I < 0.012 ng/ml
[2025-06-02 03:00] VITALS: BP 131/83
[2025-06-02] MEDS: ANTIVERT 25 MG PO (04:12)
[2025-06-02] MEDS: TYLENOL 1000 MG PO (04:13)
[2025-06-02 04:14] VITALS: BP 136/86; BP 138/111; BP 138/90; PULSE 114; PULSE 85; PULSE 89
[2025-06-02 06:03] VITALS: BP 138/90
== END 2025-06-02 06:05 | disposition home or self-care (01) ==
LOC: EMR 20:23
PROVIDERS: Emergency Medicine; Physician Assistant; EMERGENCY PHYSICIAN Emergency Medicine; FAMILY PHYSICIAN Family Medicine
DX: R07.9 Chest pain, unspecified (principal); G90.A Postural orthostatic tachycardia syndrome [POTS]; R42 Dizziness and giddiness; F84.0 Autistic disorder; F17.200 Nicotine dependence, unspecified, uncomplicated; Z90.49 Acquired absence of other specified parts of digestive tract; J45.909 Unspecified asthma, uncomplicated; E28.2 Polycystic ovarian syndrome
CPT/HCPCS: 99285; 96374; 96361; 71046; 80053; 84484; 84703; 85025; 85379; 85610; 93005

== ENCOUNTER 2025-08-08 17:43 | Emergency (ER) | payer OTHER, SELFPAY ==
[2025-08-08 17:44] VITALS: BP 144/103
[2025-08-08 18:36] VITALS: BP 120/84
--- NOTE | 2025-08-08 18:36 | ED.GENMED ---
History of Present Illness
General
Chief Complaint: Jaw Pain
Time Seen by Provider: 08/08/25 18:36
History of Present Illness
History of Present Illness:
FOCUSED PAST MEDICAL HISTORY
- POTS, GERD, seizure disorder, PCOS, autism, schizophrenia
REVIEW OF OLD RECORDS
- The patient was seen here with chest pain 2 months ago
- I reviewed records, the patient's blood work frequently does show leukocytosis since 2017
Note:
CHIEF COMPLAINT(S)
Jaw pain and infection.
HISTORY OF PRESENT ILLNESS
The patient is a 25-year-old female who presents with jaw pain due to an infection. She was previously diagnosed by a dentist with an infected broken tooth approximately two months ago and was prescribed Augmentin. The patient reports that the pain
has returned, leading her to take acetaminophen and ibuprofen in excess. She consumed approximately 4,000 mg of acetaminophen and 4,800 mg of ibuprofen over the past 24 hours. The excessive intake has left her feeling unwell. The patient denies any
intention to harm herself and states the medication was taken for pain management. She expresses frustration with past encounters in the emergency department, where she felt her pain was not taken seriously.
PAST MEDICAL AND SURGICAL HISTORY
Schizophrenia, Attention Deficit Hyperactivity Disorder (ADHD), anxiety, previous suicide attempt.
CHRONIC MEDICAL CONDITIONS SIGNIFICANTLY AFFECTING CARE
Schizophrenia and ADHD.
REVIEW OF SYSTEMS
- Gastrointestinal: Reports feeling 'really thin' after excessive acetaminophen and ibuprofen intake.
- Psychiatric: Diagnosed with schizophrenia, ADHD, anxiety; history of suicide attempt, no current suicidal ideation.
PHYSICAL EXAM
General: Alert, no acute distress.
Skin: Warm, dry.
Head: Normocephalic, atraumatic.
Neck: Supple, trachea midline.
Eye, Ears, Nose, Mouth, and Throat: Oral mucosa moist, poor dentition, noted dental caries, gingival plaque observed, mild tenderness on the left side of the mandible, no obvious abscess or erythema.
Cardiovascular: Normal peripheral perfusion, No edema.
Respiratory: Respirations are non-labored.
Gastrointestinal: Abdomen nondistended.
Back: Normal range of motion, Normal alignment.
Musculoskeletal: Normal range of motion, normal strength.
Neurological: Alert and oriented to person, place, time, and situation, no focal neurological deficit observed.
Psychiatric: Cooperative, appropriate mood & affect.
PROBLEM LIST
Acute Problems:
- Jaw pain with suspected infection.
- Possible ibuprofen overdose.
Chronic Problems:
- Schizophrenia
- ADHD
- Anxiety
PLAN
- Blood work to assess for any liver damage or other complications due to excessive ibuprofen and acetaminophen intake.
- Consider changing antibiotic to clindamycin.
- Evaluate current psychiatric status and support systems.
DIFFERENTIAL DIAGNOSIS
The Differential Diagnosis includes, in no particular order and is not limited to:
1. Dental abscess
2. Pericoronitis
3. Alveolar osteitis
4. Gingivitis
5. Periodontitis
6. Temporomandibular joint dysfunction
7. Sinusitis with referred pain
8. Trigeminal neuralgia
9. Migraine headache
10. Tension-type headache
LABS
- White count is 15.1 (chronic), acetaminophen less than 10, transaminases normal, salicylate less than 1, creatinine normal
SUMMARY OF ENCOUNTER
The patient was seen in the emergency department for jaw pain related to an infection persisting from a previously diagnosed infected broken tooth. Blood work was conducted to assess for any liver or kidney damage due to excessive intake of
acetaminophen and ibuprofen. Fortunately, test results indicated no liver or kidney damage. The patient was given a dose of ketorolac (Toradol) and an intravenous antibiotic to manage pain and infection. Given that the patient�s condition did not
warrant hospital admission, a prescription for clindamycin was provided for further treatment over the next several days. Appropriate dosing instructions for acetaminophen and ibuprofen were also given.
DISPOSITION
Discharge
ASSESSMENT
Acute jaw pain with suspected dental infection, no evidence of liver or kidney damage from medication overdose.
EMERGENCY TREATMENTS ADMINISTERED
Intravenous ketorolac, intravenous antibiotic.
PLAN
Continue acetaminophen as needed with appropriate dosing, limit ibuprofen intake, begin clindamycin for infection management, follow discharge instructions.
INDEPENDENT REVIEW OF LABS AND INTERPRETATION OF TESTS
My independent review of labs, including liver and kidney function tests, indicates no evidence of liver or kidney damage from medication intake.
MEDICATION RECONCILIATION
- Continue acetaminophen as needed with safe dosing instructions provided.
- Intravenous ketorolac administered.
- Intravenous antibiotic administered.
- Prescription for clindamycin provided.
MEDICAL DECISION MAKING
- Number and Complexity of Problems Addressed: Chronic conditions affecting care include schizophrenia, ADHD, and anxiety. Differential diagnosis includes dental abscess, pericoronitis, alveolar osteitis, gingivitis, periodontitis, temporomandibular
joint dysfunction, sinusitis with referred pain, trigeminal neuralgia, migraine headache, and tension-type headache.
- Data:
Category 1: Labs reviewed were normal, showing no liver or kidney damage.
Category 3: Managed in coordination with emergency department staff for administration of medications.
- Risk: Prescription medication was prescribed and clindamycin was given.
DIAGNOSIS
- Dental pain, unspecified (ICD-10: K08.8)
- Left-sided mandibular pain (ICD-10: R51)
UPDATE
- Toradol was given for pain
- Given the GI upset with concern for need for antibiotics, a dose of IV clindamycin was given
- Blood work is reassuring
Past History
Past History
ED Past Medical History: Asthma (smoker), Cancer (Cervical cancer), GERD (hiatal hernia, IBS), Seizures, Psychiatric (ADHD, depression, suicide attempt, Anxiety, Schizo, PTSD, Autism) and Other (Lower body nerve damage, Hiatal hernia, IBS,
Endometriosis, Ovarian cyst, PCOS, Pelvic floor dysfunction, Eczema, kidney stones)
ED Past Surgical History: Cholecystectomy, Gynecological (LEEP, ) and Tonsilectomy (and adenoids)
Social History
Tobacco: Smoker
Alcohol: None
Drug: Marijuana
Personal: Single (Has a Partner same sex)
Living: with family
Phy Exam
Physical Exam
Physical Exam:
See HPI
Course
Orders/Labs/Results
Orders:
Orders
08/08/25 18:42
Clindamycin Phosphate [Cleocin] 300 mg 0.9% Sodium Chloride [Nss] 50 ml IV NOW
08/08/25 18:53
Acetaminophen Urgent
Complete Blood Count/With Diff Urgent
Comprehensive Metabolic Panel Urgent
Lipase Urgent
Salicylate Urgent
08/08/25 18:56
Diphenhydramine [Benadryl] 25 mg IV NOW STA
Metoclopramide [Reglan] 10 mg IV NOW STA
08/08/25 18:58
Clindamycin Phosphate [Cleocin] 300 mg 0.9% Sodium Chloride [Nss] 50 ml IV NOW
08/08/25 20:04
Ketorolac [Toradol] 30 mg IV NOW STA
Abnormal Lab Results
08/08/25
18:53
WBC 15.1 H 10^3/uL
(4.8-10.8)
MCHC 32.6 L g/dL
(33.0-37.0)
RDW 15.4 H %
(11.5-14.5)
Abs Immat Gran (auto) 0.1 H 10^3/uL
(0-0.05)
Absolute Neuts (auto) 9.2 H 10^3/uL
(1.4-6.5)
Absolute Lymphs (auto) 4.4 H 10^3/uL
(1.2-3.4)
Absolute Monos (auto) 1.1 H 10^3/uL
(0.1-0.6)
Chloride 110 H mmol/L
(98-107)
BUN 6 L mg/dl
(7-17)
Salicylates < 1.0 L mg/dl
(2.0-20.0)
Acetaminophen < 10 L ug/ml
(10-30)
08/08/25 18:53
08/08/25 18:53
Vital Signs
Initial and Last Documented VS:
Initial Vital Signs
Temp Pulse Resp BP Pulse Ox
36.8 C 96 16 144/103 99
08/08/25 17:44 08/08/25 17:44 08/08/25 17:44 08/08/25 17:44 08/08/25 17:44
Last Documented Vital Signs
Temp Pulse Resp BP Pulse Ox
36.8 C 96 16 120/84 99
08/08/25 17:44 08/08/25 17:44 08/08/25 17:44 08/08/25 18:36 08/08/25 19:04
*Pulse Oximetry
SaO2: 99
Oxygen Mode of Delivery: Room air
Patient hypoxic: no
*Critical Care Note
Total Time (30-74mins, 75-104mins- exclusive of procedures): Not Applicable
ED Attending Note
-
Portions of this chart may have been created with voice recognition software.� Occasional wrong word or��sound alike� substitutions may have occurred due to the inherent limitations of voice recognition software.
Discharge Plan
Departure
Patient Disposition: Home (Routine Discharge)
Date of Disposition: 08/08/25
Time of Disposition: 20:37
Patient with high blood pressure during this ER visit?: Yes
Discharge Problem:
Pain in lower jaw
Prescriptions:
New
clindamycin HCl [Cleocin HCl] 300 mg capsule
300 mg PO TID Qty: 21 0RF
No Action
albuterol sulfate 1 PUFF HFA aerosol inhaler
2 puff inhalation R Q4HPRN PRN (Reason: asthma)
cholecalciferol (vitamin D3) [Vitamin D3] 1,000 UNIT capsule
2,000 unit PO DAILY
cetirizine 10 MG tablet
10 mg PO DAILY
venlafaxine 150 mg tablet extended release 24hr
150 mg PO DAILY Qty: 30 0RF
omeprazole 40 mg capsule,delayed release(DR/EC)
40 mg PO BID Qty: 60 0RF
hyoscyamine sulfate 0.125 mg tablet,disintegrating
0.125 mg PO QID PRN (Reason: dyspepsia) Qty: 120 0RF
famotidine 20 mg tablet
20 mg PO BID Qty: 30 0RF
lorazepam [Ativan] 0.5 mg Tablet
0.5 mg PO DAILY
aripiprazole 5 mg Tablet
7.5 mg PO DAILY
Liletta 20.4 mcg/24 hrs (8 yrs) 52 mg Intrauterine Device
1 device INTRAUTERINE ONCE
hydroxyzine HCl 25 mg tablet
25 mg PO BID PRN (Reason: nausea)
diclofenac sodium 75 mg tablet,delayed release (DR/EC)
75 mg PO BID Qty: 10 0RF
clindamycin HCl 150 mg capsule
450 mg PO TID 10 Days Qty: 90 0RF
hydrocodone-acetaminophen 5-300 mg tablet
1 tab PO BID PRN (Reason: Pain) Qty: 8 0RF
ondansetron 4 mg tablet,disintegrating
4 mg PO TIDPRN PRN (Reason: nausea/vomiting) Qty: 10 0RF
epinephrine [EpiPen 2-Alexis] 0.3 mg/0.3 mL auto-injector
0.3 mg IM ONCE PRN (Reason: anaphylaxis) Qty: 2 0RF
prednisone 50 mg tablet
50 mg PO DAILY Qty: 3 0RF
meclizine 25 mg tablet
25 mg PO TID PRN (Reason: dizziness) Qty: 10 0RF
Referrals:
UNKNOWN - PT DOES,NOT KNOW [Unknown Provider]
Activity Restrictions/Additional Instructions:
The maximum dose of acetaminophen (Tylenol) in a 24-hour period is 4 g (4000 mg). This means you could take 2 extra strength Tylenol 4 times per day. The maximum dose of ibuprofen (Motrin) is 2400 mg in a 24-hour period. I recommend 4
exsu-[id number]-[id number] ibuprofen (Motrin) every 8 hours with food for a few days. Return here if worse. We also gave a dose of Reglan and Benadryl to help with nausea. I sent a prescription for an antibiotic to your pharmacy, clindamycin. Follow-up
with your dentist again.
Interventions
Interventions:
*Risk Screen - Suicide Last Done: 08/08/25 17:44
*General Assessment Last Done: 08/08/25 19:04
*Neglect/Abuse Screening Last Done: 08/08/25 17:44
*ED- Fall Risk Assessment Last Done: 08/08/25 19:04
*ED COVID-19 Vaccine History Last Done: 08/08/25 19:04
*ED Influenza Vaccine History Last Done: 08/08/25 19:04
*Nursing Disposition Last Done: 08/08/25 21:03
ED-EENT Assessment Last Done: 08/08/25 19:04
ED- Cardiac Assessment Last Done: 08/08/25 19:04
Discharge Date and Time
Discharge Date/Time: 08/08/25 21:03
Print Language: NIGERIEN
[2025-08-08 18:37] VITALS: BMI 50.3
[2025-08-08 18:59] LABS: Hematocrit 43.2 % (37.0-47.0); Hemoglobin 14.1 g/dL (12.0-16.0); Mean Corp Hgb Conc. 32.6 g/dL (33.0-37.0); Mean Corpuscular Volume 86.1 fL (81.0-99.0); Nucleated Red Blood Cells % 0 %; Platelet Count 363 10^3/uL (130-400); Red Cell Dist. Width 15.4 % (11.5-14.5)
[2025-08-08] MEDS: BENADRYL 25 MG IV (19:00)
[2025-08-08] MEDS: REGLAN 10 MG IV (19:00)
[2025-08-08] MEDS: CLEOCIN 52 MG IV (19:17)
[2025-08-08 19:24] LABS: ALT (SGPT) 25 U/L (0-35); AST (SGOT) 20 U/L (14-36); Acetaminophen < 10 ug/ml (10-30); Albumin 3.8 g/dl (3.5-5.0); Alkaline Phosphatase 47 U/L (38-126); Blood Urea Nitrogen 6 mg/dl (7-17); Calcium 9.5 mg/dl (8.4-10.2); Carbon Dioxide 28 mmol/L (22-30); Chloride 110 mmol/L (98-107); Estimated Creatinine Clearance > 125 ml/min; Glucose 88 mg/dl (70-99); Lipase 299 U/L (23-300); Potassium 4.8 mmol/L (3.5-5.1); Salicylate < 1.0 mg/dl (2.0-20.0); Sodium 138 mmol/L (135-145); Total Protein 6.7 g/dl (6.3-8.2); eGFR > 60.00
[2025-08-08] MEDS: TORADOL 30 MG IV (20:08)
== END 2025-08-08 21:03 | disposition home or self-care (01) ==
LOC: EMR 17:43
PROVIDERS: EMERGENCY PHYSICIAN Emergency Medicine; FAMILY PHYSICIAN Student in an Organized Health Care Education/Training Program
DX: R68.84 Jaw pain (principal); K08.89 Other specified disorders of teeth and supporting structures; F17.200 Nicotine dependence, unspecified, uncomplicated; F84.0 Autistic disorder
CPT/HCPCS: 96365; 96375; 99284; 80053; 80143; 80179; 83690; 85025